=== PATIENT | male | born 1945 | race Caucasian/White ===

== ENCOUNTER → 2018-07-04 13:50 | Outpatient (CLI) | payer MEDICARE, SELFPAY ==
[2017-04-16 10:15] VITALS: BMI 30.9
--- NOTE | 2018-07-04 13:55 | RAD_ITS ---
STUDY: X-RAY - RIGHT SHOULDER REASON FOR EXAM: Male, 72 years old. Pain TECHNIQUE: 4 view(s) of the shoulder. COMPARISON: None. FINDINGS: There is moderate degenerative arthrosis of the glenohumeral articulation. Normal acromioclavicular joint. Normal acromion. Normal humeral head and visualized proximal humerus. The soft tissue structures are unremarkable. Normal visualized pulmonary apex. RAD/Shoulder min 2 Views IMPRESSION: There is moderate degenerative arthrosis of the glenohumeral articulation. There are NO fractures. There is NO dislocation. Electronically Signed: Klaus Boo MD at 7:34 EDT , Service support ,
== END ==
PROVIDERS: Family Provider Family Medicine; PCP Family Medicine; Referring Provider Family Medicine; Visit Provider Family Medicine
DX: M75.00 Adhesive capsulitis of unspecified shoulder (principal)
CPT/HCPCS: 73030

== ENCOUNTER → 2019-03-02 08:35 | Outpatient (CLI) | payer MEDICARE, SELFPAY ==
[2017-04-16 10:15] VITALS: BMI 30.9
[2019-03-02 08:37] LABS: Bacteria 0 SEEN /hpf (None Seen); Mucous, Urine 0 SEEN /hpf (<or=2+); Red Blood Cells-Urine 0 SEEN /hpf (0-5); Squamous Epithelial Cells - UA 0 SEEN /hpf (0-5); White Blood Cells 0 SEEN /hpf (0-5)
[2019-03-02 10:01] LABS: Absolute Lymphocyte Count 2.26 X10^3/uL (0.83-4.51); Basophil# 0.05 X10^3/uL; Basophil% 0.8 % (0-1); Eosinophil# 0.32 X10^3/uL; Eosinophils% 5.2 % (0-5); Hemoglobin 16.1 g/dL (13.0-16.5); Lymphocyte # 2.26 X10^3/ul (4.0); Mean Corpuscular Hgb 31.9 pg (27.0-32.0); Mean Corpuscular Volume 91.1 fL (80-94); Mean Platelet Vol. 11.2 fl (6.2-12.0); Monocyte# 0.44 X10^3/uL; Monocyte% 7.2 % (0-10); NRBC Flagged by Analyzer 0 % (0-5); Neutrophil # 3.03 X10^3/uL (2.7-7.7); Neutrophil % 49.6 % (47-70); Platelet Count 175 K/mm3 (150-450); RBC Distribution Width CV 12.7 % (11.6-14.6); RBC Distribution Width SD 42.2 fl (35.1-43.9); Red Blood Count 5.05 M/mm3 (4.6-6.2); White Blood Count 6.1 K/mm3 (4.4-11.0)
[2019-03-02 10:14] LABS: Color, Urine Yellow (Yellow); Glucose, Dipstick Normal (Normal); Ketone-Dipstick 5 mg/dl (Negative); Leukocyte Esterase-Dipstick 25 /ul (Negative); Nitrite-Dipstick Negative (Negative); Occult Blood-Urine Negative /ul (Negative); Protein-Dipstick 30 mg/dl (Negative); Urine Clarity Clear (Clear); Urine Urobilinogen 1 mg/dl (Normal)
[2019-03-02 10:17] LABS: Urine Bilirubin Dipstick 1 mg/dL (Negative)
[2019-03-02 10:20] LABS: ALB/GLOB Ratio 1.2 RATIO (0.9-2.4); AST(SGOT) 21 U/L (15-37); Alanine Aminotransfer ALT/SGPT 29 U/L (16-61); Alkaline Phosphatase 78 U/L (45-117); Anion Gap 4 (5-15); BUN 20 mg/dL (7-18); Calcium,Total 9.1 mg/dL (8.5-10.1); Chloride 103 mmol/L (98-107); Cholesterol 159 mg/dL (200); Creatinine, Serum 1.11 mg/dL (0.70-1.30); EST Glomerular Filtration Rate 69 mL/min (>60); Est Glom Filt Rate - Afr Amer 84 mL/min (>60); Globulin 3.2 g/dL (2.2-4.2); Glucose 110 mg/dL (74-106); High Density Lipoprotein 32 mg/dL; Potassium 4.2 mmol/L (3.5-5.1); Protein, Total 7.2 g/dL (6.4-8.2); Sodium Level 139 mmol/L (136-145); Thyroid Stim Hormone (TSH) 2.34 uIU/mL (0.358-3.74); Triglycerides 213 mg/dL; Very Low Density Lipoprotein 43 mg/dL (5-40)
[2019-03-05 16:43] LABS: Hemoglobin A1c 5.2 % (4.2-6.3)
== END ==
PROVIDERS: Family Provider Family Medicine; PCP Family Medicine; Referring Provider Family Medicine; Visit Provider Family Medicine
DX: Z00.00 Encounter for general adult medical examination without abnormal findings (principal); R73.09 Other abnormal glucose
CPT/HCPCS: 36415; 80053; 80061; 81001; 83036; 84443; 85025

== ENCOUNTER → 2019-10-09 13:46 | Outpatient (CLI) | payer MEDICARE, SELFPAY ==
--- NOTE | 2019-10-09 13:49 | CT_ITS ---
STUDY: CT ABDOMEN AND PELVIS WITH CONTRAST REASON FOR EXAM: Male, 73 years old. LEFT SIDE ABD PAIN X 2 YEARS RADIATION DOSAGE (If Supplied By Facility): CTDIvol = ( 25.93 ) mGy, DLP = ( 975.97 ) mGycm TECHNIQUE: Transaxial images were obtained from the dome of the diaphragm to the symphysis pubis with oral contrast. Oral and amp; IV Readi-CAT and amp; 100mL Isovue-300 was administered. Sagittal and coronal images were reconstructed. Individualized dose optimization techniques were used for this CT. COMPARISON: None. FINDINGS: Minimal degree of bibasilar atelectasis. Coronary artery calcification. Normal liver. Normal gallbladder and extrahepatic biliary system. Normal spleen. Normal pancreas. Normal bilateral adrenal glands. Normal right kidney. There is a 2.8 cm x 2.7 cm cyst in the mid lateral portion of the left kidney. The stomach is not well distended although there is suggestion of diffuse gastric wall thickening. Correlation with upper GI series is recommended. Normal small intestine. Diffuse haustral thickening of the colon more prominent in the transverse colon as well as the left hemicolon and rectosigmoid colon. Findings are in keeping with a pancolitis. The appendix is visualized and appears normal. There is diffuse atherosclerotic calcification of the abdominal aorta, without a demonstrated aneurysm. Normal inferior vena cava. Normal retroperitoneum. Diffuse bladder wall thickening. There is enlargement of the prostate gland. It measures 3.8 cm x 4 cm. Central calcifications are seen. Normal abdominal wall. Normal osseous structures. CT/Abdomen/Pelvis WITH Contrast IMPRESSION: Saul colitis. Diffuse gastric wall thickening. Correlation with upper GI series is recommended or endoscopy. Mild prostatic enlargement with indentation at the bladder base. Diffuse bladder wall thickening. Electronically Signed: Ashish Thacker, at 15:02 EDT , Service support ,
[2019-10-09 14:11] LABS: CREATININE FINGERSTICK 0.8 mg/dL (0.70-1.30); EGFR FINGERSTICK > 60.0000 mL/min (>60)
== END ==
PROVIDERS: PCP Family Medicine; Referring Provider Family Medicine; Visit Provider Family Medicine
DX: R10.9 Unspecified abdominal pain (principal)
CPT/HCPCS: 74177; Q9967

== ENCOUNTER → 2019-12-17 12:59 | Outpatient (CLI) | payer MEDICARE, SELFPAY ==
[2019-12-15 11:34] VITALS: BMI 30.9
--- NOTE | 2019-12-17 13:01 | RAD_ITS ---
STUDY: X-RAY CHEST REASON FOR EXAM: Male, 74 years old. SOB, WHEEZING AND COUGHING WITH LOTS OF PHLEGM PER PATIENT FOR 2 WEEKS NOW. TECHNIQUE: PA and lateral views of the chest. COMPARISON: Comparison is made with prior study dated 04/16/2017. FINDINGS: Hyperinflation. Scattered calcified granulomas. There is no demonstrated pleural abnormality. Normal size heart. Normal mediastinum and joaquín. Normal visualized pulmonary arteries. There is atherosclerotic calcification of the aortic arch with tortuosity. There are diffuse degenerative changes of the visualized thoracic spine. Normal visualized ribs, clavicles, and shoulders. There is no demonstrated abnormality of the visualized soft tissue structures of the upper abdomen. RAD/Chest PA and Lateral IMPRESSION: No acute abnormality is seen. Electronically Signed: Ashish Thacker, at 15:55 EDT , Service support ,
== END ==
PROVIDERS: PCP Family Medicine; Referring Provider Physician Assistant; Visit Provider Physician Assistant
DX: J06.9 Acute upper respiratory infection, unspecified (principal)
CPT/HCPCS: 71046

== ENCOUNTER → 2019-12-24 17:43 | Outpatient (CLI) | payer MEDICARE, SELFPAY ==
[2019-12-22 12:50] VITALS: BMI 30.9
== END ==
PROVIDERS: Physician Assistant Surgical; PCP Family Medicine; Referring Provider Internal Medicine Gastroenterology; Visit Provider Internal Medicine Gastroenterology
DX: Z11.59 Encounter for screening for other viral diseases (principal)
CPT/HCPCS: 87635; C9803; U0003

== ENCOUNTER → 2020-01-16 09:05 | Outpatient (CLI) | payer MEDICARE, SELFPAY ==
[2019-12-26 10:10] VITALS: BMI 30.9
[2020-01-16 10:03] LABS: Absolute Neutrophil Count 2.2 X10^3/uL (2.0-7.7); Basophil# 0.04 X10^3/uL; Basophil% 0.9 % (0-1); Eosinophils% 8.6 % (0-5); Hematocrit 46.8 % (40-54); Hemoglobin 15.8 g/dL (13.0-16.5); Lymphocyte % 34.5 % (19-41); Mean Corp Hgb Conc 33.8 g/dL (32-36); Mean Corpuscular Hgb 32.2 pg (27.0-32.0); Mean Corpuscular Volume 95.3 fL (80-94); Mean Platelet Vol. 10.8 fl (6.2-12.0); Monocyte# 0.39 X10^3/uL; Monocyte% 8.4 % (0-10); NRBC Flagged by Analyzer 0 % (0-5); Neutrophil % 47.4 % (47-70); Platelet Count 130 K/mm3 (150-450); RBC Distribution Width CV 13.1 % (11.6-14.6); RBC Distribution Width SD 45.6 fl (35.1-43.9); Red Blood Count 4.91 M/mm3 (4.6-6.2); White Blood Count 4.6 K/mm3 (4.4-11.0)
[2020-01-16 10:35] LABS: ALB/GLOB Ratio 1.2 RATIO (0.9-2.4); AST(SGOT) 20 U/L (15-37); Alanine Aminotransfer ALT/SGPT 25 U/L (16-61); Albumin, Serum 3.6 g/dL (3.2-5.0); Alkaline Phosphatase 65 U/L (45-117); Anion Gap 4 (5-15); BUN 17 mg/dL (7-18); BUN/Creat Ratio 15.7 RATIO (10-20); Calcium,Total 9.3 mg/dL (8.5-10.1); Chloride 106 mmol/L (98-107); Cholesterol 185 mg/dL (200); Creatinine, Serum 1.08 mg/dL (0.70-1.30); EST Glomerular Filtration Rate 71 mL/min (>60); Est Glom Filt Rate - Afr Amer 86 mL/min (>60); Glucose 123 mg/dL (74-106); High Density Lipoprotein 53 mg/dL; Potassium 4.8 mmol/L (3.5-5.1); Protein, Total 6.6 g/dL (6.4-8.2); Sodium Level 141 mmol/L (136-145); Triglycerides 170 mg/dL; Very Low Density Lipoprotein 34 mg/dL (5-40)
== END ==
PROVIDERS: PCP Family Medicine; Referring Provider Family Medicine; Visit Provider Family Medicine
DX: E78.5 Hyperlipidemia, unspecified (principal); I10 Essential (primary) hypertension
CPT/HCPCS: 36415; 80053; 80061; 85025

== ENCOUNTER → 2020-03-11 15:56 | Outpatient (CLI) | payer MEDICARE, SELFPAY ==
[2019-12-26 10:10] VITALS: BMI 30.9
[2020-03-11 18:21] LABS: PSA,Total- Diagnostic 2.02 ng/mL (0.0-4.0)
== END ==
PROVIDERS: PCP Family Medicine; Referring Provider Family Medicine; Visit Provider Nurse Practitioner Adult Health
DX: N40.2 Nodular prostate without lower urinary tract symptoms (principal)
CPT/HCPCS: 36415; 84153

== ENCOUNTER → 2020-05-06 06:52 | Outpatient (CLI) | payer MEDICARE, SELFPAY ==
[2019-12-26 10:10] VITALS: BMI 30.9
--- NOTE | 2020-05-06 12:44 | PFT ---
INTRODUCTION: The patient is a 74-year-old male that presents for pulmonary function studies secondary to a diagnosis of shortness of breath. Respiratory therapy reports good patient effort. Bronchodilators were used during testing. INTERPRETATION: Forced expiration spirometry demonstrates the presence of a mild large airways obstructive ventilatory defect. There was a significant response to aerosolized bronchodilators noted. Spirograms are of good quality and plateau gradually indicating slow emptying of the lungs. Body plethysmography was performed and revealed an elevated TLC and RV, indicative of underlying hyperinflation and air trapping. Diffusing capacity by single breath CO was within normal limits. IMPRESSION: Partially reversible mild large airways obstructive ventilatory defect with associated hyperinflation and air trapping. Diffusing capacity is preserved.
== END ==
PROVIDERS: PCP Family Medicine; Referring Provider Family Medicine; Visit Provider Family Medicine
DX: R06.02 Shortness of breath (principal)
CPT/HCPCS: 94060; 94726; 94729

== ENCOUNTER 2020-05-07 20:29 | Emergency (ER) | payer OTHER, MEDICARE, SELFPAY ==
[2019-12-26 10:10] VITALS: BMI 30.9
[2020-05-07 20:29] VITALS: BP 148/105; PULSE 85; RESP 20; TEMP 36.5; O2SAT 96; BMI 29.0
--- NOTE | 2020-05-07 20:43 | EKG12_ITS ---
Test Reason : DYSRHYTHMIA Blood Pressure : / mmHG Vent. Rate : 072 BPM Atrial Rate : 072 BPM P-R Int : 136 ms QRS Dur : 082 ms QT Int : 390 ms P-R-T Axes : 060 055 045 degrees QTc Int : 427 ms Normal sinus rhythm Normal ECG Confirmed by DIPESH MAIER, TATYANA ([id number]), legal editor JESSICA SIMMONS ([id number]) on 05/09/2020 8:37:42 AM Referred By: ARSALAN Confirmed By:OLLIE LANDON MD
--- NOTE | 2020-05-07 20:45 | ED.VIS.GEN ---
History of Present Illness Chief Complaint: Shortness of Breath Narrative: Patient presents with shortness of breath, he was recently diagnosed with asthma, had a nebulizer yesterday and significantly improved but today he started wheezing again. No fever or chills, he has a cough that is mildly productive with clear sputum. He has no chest pain or back pain no pleuritic component. He has no lower extremity edema or calf pain he has no DVT or PE risk factors. Past medical history: Pretension, asthma Medications: Reviewed Social history: Does not smoke, no alcohol Review of systems: All systems negative except as indicated General: Denies: Fever Eyes: Denies: Visual changes - bilaterally ENT: Denies: Rhinorrhea, Sore throat Cardiovascular: Denies: Chest pain Respiratory: Shortness of breath with cough as in HPI Gastrointestinal: Denies: Abdominal pain, Nausea, Vomiting Genitourinary: Denies: Dysuria Musculoskeletal: Denies: Myalgias Skin: Denies: Rash Neurological: Denies: Headache, no focal weakness Psych: Reports: negative Hematologic: Denies: Easy bruising, Easy bleeding Physical exam General: Well nourished, Well developed, he ambulated to the room he appears in mild distress Head: Normocephalic, Atraumatic Eyes: Conjunctiva not pale ENT: Moist mucous membranes Neck: Supple, Nontender, No lymphadenopathy Cardiovascular: Regular rate, Regular rhythm Respiratory: Bilateral wheezing, he is not tachypneic. No stridor. He is speaking in full sentences Abdomen: Soft, Nontender, Nondistended Back: Nontender, Normal Inspection. Negative for: CVA tenderness Extremities: Nontender, No edema Skin: Normal color, No rash Neurological: Alert, Normal Strength, Normal Sensation Psychological: Normal affect Past Medical History - Allergies and Home Meds Allergies/Adverse Reactions: Allergies No Known Allergies Allergy (Verified 05/07/20 20:34) Primary Care Physician: Juarez Silveira MD [Primary Care Provider] - Smoking Status: Former smoker - Family History Paternal Family History: Family History (Last Reviewed 12/26/19 @ 10:10 by Isabella Tapia) Father Myocardial infarction Family History: Reports: Heart Disease Physical Exam Vital Signs/Narrative: Vital Signs Temp Pulse Resp BP Pulse Ox 05/07/20 20:29 97.7 F L 85 20 H 148/105 H 96 Diagnostic/Tx/Re-eval Chest X-Ray - ED: 1 View, Read by ED Physician, Read by Radiologist, Normal, Heart, Lungs, Mediastinum - Rhythm Strip Rhythm Strip: Sinus Rhythm Rate: 72 Ectopy: None - EKG Initial EKG Interpretation: - - Normal sinus rhythm with a rate of 72. Normal MO and QTc intervals. No ischemic changes. - Medical Decision Making Patient was given nebulizers he significantly improved. He appears well he wants to be discharged. I will give him steroids in the emergency department and he has an appointment with his PCP in the morning. ED Disposition - Plan for ED Patient: Disposition: Home or Assisted Living Diagnosis: Asthma exacerbation Instructions: ED Asthma, Acute (Adult) Prescriptions: Prednisone 60 mg PO DAILY #12 tab Transmission Status: Pending to [id number] Referrals: Juarez Silveira MD [Primary Care Provider] -
[2020-05-07 21:04] VITALS: O2SAT 94
[2020-05-07 21:15] VITALS: PULSE 70; RESP 18
[2020-05-07] MEDS: Ipratropium/Albuterol Sulfate 3 ML AMPUL.NEB INHALATION (21:15)
[2020-05-07] MEDS: MethylPREDNISolone 125 MG/2 ML Vial IV (21:16)
--- NOTE | 2020-05-07 21:19 | RAD_ITS ---
STUDY: X-RAY CHEST REASON FOR EXAM: Male, 74 years old. Asthma. Shortness of breath. TECHNIQUE: Frontal view of the chest COMPARISON: 12/17/19 FINDINGS: The lungs are clear. There are no pleural effusions. There is no pneumothorax. The heart is normal in size. The visualized osseous structures are within normal limits. RAD/Chest 1 View (Portable) IMPRESSION: No acute thoracic pathology. Electronically Signed: Tomas Carreno MD at 21:32 EST Tel , Service support ,
[2020-05-07 21:21] LABS: Absolute Lymphocyte Count 2.44 X10^3/uL (0.83-4.51); Absolute Neutrophil Count 2.8 X10^3/uL (2.0-7.7); Basophil# 0.11 X10^3/uL; Basophil% 1.6 % (0-1); Eosinophil# 0.95 X10^3/uL; Hematocrit 45.1 % (40-54); Hemoglobin 16.5 g/dL (13.0-16.5); Lymphocyte # 2.44 X10^3/ul (4.0); Mean Corp Hgb Conc 36.6 g/dL (32-36); Mean Corpuscular Hgb 32.5 pg (27.0-32.0); Monocyte% 7.4 % (0-10); NRBC Flagged by Analyzer 0 % (0-5); Neutrophil # 2.75 X10^3/uL (2.7-7.7); Neutrophil % 40.7 % (47-70); Platelet Count 157 K/mm3 (150-450); RBC Distribution Width CV 12.4 % (11.6-14.6); RBC Distribution Width SD 40.4 fl (35.1-43.9); Red Blood Count 5.07 M/mm3 (4.6-6.2); White Blood Count 6.8 K/mm3 (4.4-11.0)
[2020-05-07 21:40] LABS: Anion Gap 6 (5-15); BUN 18 mg/dL (7-18); Calcium,Total 9.1 mg/dL (8.5-10.1); Chloride 106 mmol/L (98-107); Creatinine, Serum 1.06 mg/dL (0.70-1.30); EST Glomerular Filtration Rate 73 mL/min (>60); Est Glom Filt Rate - Afr Amer 88 mL/min (>60); Estimated Creatinine Clearance 58.89 ml/min; Glucose 132 mg/dL (74-106); Potassium 3.3 mmol/L (3.5-5.1); Sodium Level 139 mmol/L (136-145)
[2020-05-07] MEDS: predniSONE 20 MG Tablet 60 MG PO (22:29)
[2020-05-07 22:33] VITALS: BP 147/97; PULSE 73; RESP 19; O2SAT 95
== END 2020-05-07 22:36 | disposition home or self-care (01) ==
PROVIDERS: Emergency Provider Emergency Medicine; PCP Family Medicine
DX: J45.901 Unspecified asthma with (acute) exacerbation (principal); Z82.49 Family history of ischemic heart disease and other diseases of the circulatory system; Z87.891 Personal history of nicotine dependence
CPT/HCPCS: 71045; 80048; 84484; 85025; 87426; 93005; 94640; 99284

== ENCOUNTER → 2020-12-17 08:07 | Outpatient (CLI) | payer MEDICARE, SELFPAY ==
[2020-12-17 10:11] LABS: Absolute Lymphocyte Count 1.82 X10^3/uL (0.83-4.51); Absolute Neutrophil Count 3.3 X10^3/uL (2.0-7.7); Basophil# 0.06 X10^3/uL; Eosinophil# 0.28 X10^3/uL; Eosinophils% 4.8 % (0-5); Hematocrit 44.2 % (40-54); Hemoglobin 15.7 g/dL (13.0-16.5); Lymphocyte # 1.82 X10^3/ul (0.83-4.51); Lymphocyte % 31.1 % (19-41); Mean Corp Hgb Conc 35.5 g/dL (32-36); Mean Corpuscular Hgb 32.6 pg (27.0-32.0); Mean Corpuscular Volume 91.9 fL (80-94); Monocyte# 0.42 X10^3/uL; Monocyte% 7.2 % (0-10); NRBC Flagged by Analyzer 0 % (0-5); Neutrophil # 3.25 X10^3/uL (2.7-7.7); Neutrophil % 55.6 % (47-70); Platelet Count 144 K/mm3 (150-450); RBC Distribution Width CV 12.8 % (11.6-14.6); RBC Distribution Width SD 43.3 fl (35.1-43.9); Red Blood Count 4.81 M/mm3 (4.6-6.2); White Blood Count 5.9 K/mm3 (4.4-11.0)
[2020-12-17 10:45] LABS: ALB/GLOB Ratio 1.2 RATIO (0.9-2.4); AST(SGOT) 25 U/L (15-37); Alanine Aminotransfer ALT/SGPT 27 U/L (16-61); Albumin, Serum 3.6 g/dL (3.2-5.0); Alkaline Phosphatase 59 U/L (45-117); Anion Gap 8 (5-15); BUN 14 mg/dL (7-18); BUN/Creat Ratio 13.6 RATIO (10-20); Calcium,Total 8.1 mg/dL (8.5-10.1); Chloride 105 mmol/L (98-107); Cholesterol 160 mg/dL (200); Creatinine, Serum 1.03 mg/dL (0.70-1.30); EST Glomerular Filtration Rate 75 mL/min (>60); Est Glom Filt Rate - Afr Amer 91 mL/min (>60); Globulin 2.9 g/dL (2.2-4.2); Glucose 125 mg/dL (74-106); High Density Lipoprotein 46 mg/dL; PSA,Total- Diagnostic 2.29 ng/mL (0.0-4.0); Potassium 3.1 mmol/L (3.5-5.1); Protein, Total 6.5 g/dL (6.4-8.2); Sodium Level 138 mmol/L (136-145); Triglycerides 159 mg/dL; Very Low Density Lipoprotein 32 mg/dL (5-40)
== END ==
PROVIDERS: PCP Family Medicine; Referring Provider Family Medicine; Visit Provider Family Medicine
DX: E78.5 Hyperlipidemia, unspecified (principal); I10 Essential (primary) hypertension; N40.0 Benign prostatic hyperplasia without lower urinary tract symptoms
CPT/HCPCS: 36415; 80053; 80061; 84153; 85025

== ENCOUNTER 2021-04-23 09:05 | Outpatient (CLI) | payer MEDICARE, SELFPAY ==
[2021-04-23 09:29] LABS: Absolute Lymphocyte Count 1.94 X10^3/uL (0.83-4.51); Absolute Neutrophil Count 3.9 X10^3/uL (2.0-7.7); Basophil# 0.08 X10^3/uL; Basophil% 1.1 % (0-1); Eosinophil# 0.74 X10^3/uL; Eosinophils% 10.4 % (0-5); Hematocrit 46.2 % (40-54); Hemoglobin 16.8 g/dL (13.0-16.5); Lymphocyte # 1.94 X10^3/ul (0.83-4.51); Lymphocyte % 27.2 % (19-41); Mean Corp Hgb Conc 36.4 g/dL (32-36); Mean Corpuscular Hgb 33.1 pg (27.0-32.0); Mean Corpuscular Volume 91.1 fL (80-94); Mean Platelet Vol. 10.2 fl (6.2-12.0); Monocyte# 0.47 X10^3/uL; Monocyte% 6.6 % (0-10); NRBC Flagged by Analyzer 0 % (0-5); Neutrophil # 3.88 X10^3/uL (2.7-7.7); Neutrophil % 54.4 % (47-70); Platelet Count 160 K/mm3 (150-450); RBC Distribution Width CV 12.6 % (11.6-14.6); Red Blood Count 5.07 M/mm3 (4.6-6.2); White Blood Count 7.1 K/mm3 (4.4-11.0)
[2021-04-29 02:07] LABS: Aspirgillus flavus Negative (Neg:<1:1); Aspirgillus fumigatus Negative (Neg:<1:1); Aspirgillus niger Negative (Neg:<1:1)
[2021-04-29 04:07] LABS: Alternaria alternata <0.10 kU/L (Class 0); Aspergillus fumigatus <0.10 kU/L (Class 0); Bahia Grass <0.10 kU/L (Class 0); Bermuda Grass <0.10 kU/L (Class 0); Bluegrass, Kentucky <0.10 kU/L (Class 0); Cat Hair/Dander, Standard <0.10 kU/L (Class 0); Cedar, Mountain <0.10 kU/L (Class 0); Cladosporium herbarum <0.10 kU/L (Class 0); Cockroach, American <0.10 kU/L (Class 0); D farinae Mite <0.10 kU/L (Class 0); D pteronyssinus 0.13 kU/L (Class 0/I); Dog Epithelia <0.10 kU/L (Class 0); Elm, American White <0.10 kU/L (Class 0); Hazelnut Tree <0.10 kU/L (Class 0); Hickory, White <0.10 kU/L (Class 0); Johnson Grass <0.10 kU/L (Class 0); Maple/Box Elder <0.10 kU/L (Class 0); Mucor racemosus <0.10 kU/L (Class 0); Mugwort <0.10 kU/L (Class 0); Mulberry, White <0.10 kU/L (Class 0); Oak, White <0.10 kU/L (Class 0); Penicillium chrysogen <0.10 kU/L (Class 0); Pigweed, Rough <0.10 kU/L (Class 0); Plantain, English <0.10 kU/L (Class 0); Ragweed, Short/Common <0.10 kU/L (Class 0); Sheep Sorrel(Dock) <0.10 kU/L (Class 0); Stemphylium herbarum <0.10 kU/L (Class 0); Sweet Gum <0.10 kU/L (Class 0); Sycamore, American <0.10 kU/L (Class 0)
[2021-04-29 13:32] LABS: Immunoglobulin E 396 IU/mL (6-495); Nettle <0.10 kU/L (Class 0)
== END 2021-04-23 23:59 | disposition short-term general hospital (02) ==
LOC: PAVLAB 09:06
PROVIDERS: PCP Family Medicine; Referring Provider Internal Medicine Critical Care Medicine; Visit Provider Internal Medicine Critical Care Medicine
DX: J45.51 Severe persistent asthma with (acute) exacerbation (principal)
CPT/HCPCS: 36415; 82785; 85025; 86003; 86606

== ENCOUNTER 2021-05-14 07:57 | Outpatient (CLI) | payer MEDICARE, SELFPAY ==
[2021-05-14 08:37] VITALS: PULSE 74; PULSE 76; PULSE 86; PULSE 88; PULSE 89; PULSE 90; O2SAT 93; O2SAT 94; O2SAT 95; O2SAT 96; O2SAT 97
--- NOTE | 2021-05-14 12:20 | PCM.PSN.6M ---
PSN 6 Minute Walk Test 6 Minute Walk Test 6 Minute Walk Test: 6 Minute Walk Test PSN:6-Minute Walk Test Start: 05/14/21 08:35 Freq: Status: Active Protocol: RESP.6MINW Document 05/14/21 08:37 ANGELINA (Rec: 05/14/21 08:39 ANGELINA [id number]) 6 Minute Walk Test Date Performed 05/14/21 Time Performed 08:15 Height 5 ft 7 in Weight: 83.915 kg Weight in Pounds [address]: Chris Floyd Assistive device used: None Pre-test Oxygen Delivery Method Room Air Pulse Ox (%) 96 Pulse Rate (60-100 beats/min) 74 Dyspnea Robert Scale (0-10) 0 Exertion Robert Scale (6-20) 6 1st minute Oxygen Delivery Method Room Air Pulse Ox (%) 93 Pulse Rate (60-100 beats/min) 88 2nd minute Oxygen Delivery Method Room Air Pulse Ox (%) 94 Pulse Rate (60-100 beats/min) 89 3rd minute Oxygen Delivery Method Room Air Pulse Ox (%) 96 Pulse Rate (60-100 beats/min) 89 4th minute Oxygen Delivery Method Room Air Pulse Ox (%) 95 Pulse Rate (60-100 beats/min) 86 5th minute Oxygen Delivery Method Room Air Pulse Ox (%) 96 Pulse Rate (60-100 beats/min) 90 6th minute Oxygen Delivery Method Room Air Pulse Ox (%) 95 Pulse Rate (60-100 beats/min) 90 Dyspnea Robert Scale (0-10) 0 Exertion Robert Scale (6-20) 11 Post-test Oxygen Delivery Method Room Air Pulse Ox (%) 97 Pulse Rate (60-100 beats/min) 76 Full Laps Walked 22 Partial Lap, Number of Tiles Walked 25 Total Distance Walked (ft) 1323 Interpretation Interpretation: The patient was able to ambulate 1323 feet over the course of 6 minutes on room air with no assistive devices or breaks. There was no significant desaturation or tachycardia noted. These findings are consistent with a normal exercise oximetry. Recommendations Recommendations: No supplemental oxygen is indicated at this time.
== END 2021-05-14 23:59 | disposition home or self-care (01) ==
LOC: PSN 07:59
PROVIDERS: PCP Family Medicine; Referring Provider Internal Medicine Critical Care Medicine; Visit Provider Internal Medicine Critical Care Medicine
DX: J45.51 Severe persistent asthma with (acute) exacerbation (principal)
CPT/HCPCS: 94618

== ENCOUNTER 2021-05-25 10:33 | Outpatient (CLI) | payer MEDICARE, SELFPAY ==
--- NOTE | 2021-05-25 13:00 | PFTCOMP_ITS ---
COMPLETE PULMONARY FUNCTION TEST INTERPRETATION Brief HPI: Patient is a 75 year old male, currently under the care of myself, who presents to [facility] for complete pulmonary function tests secondary to diagnosis of Asthma. Respiratory therapist reports good effort and reproducible results. Interpretation: Forced expiration spirometry shows no large airways obstructive ventilatory defect with an FEV1 of 124% predicted. There is no significant bronchodilator response by strict ATS criteria. Spirograms are of good quality and plateau normally. The respiratory flow volume loop shows a normal pattern. Lung volumes by body plethysmography show a normal total lung capacity at 6.4 L, 111% predicted. All other lung volumes are within normal limits. Diffusion capacity by carbon monoxide is normal at 117% predicted. The airway resistance is normal. Compared to previous pulmonary function tests from 05/06/20, there is been a significant improvement in FEV1 by 52% with corresponding resolution of air trapping with hyperinflation. Impression: These pulmonary function tests are within normal limits.
== END 2021-05-25 23:59 | disposition home or self-care (01) ==
LOC: PSN 10:35
PROVIDERS: PCP Family Medicine; Referring Provider Internal Medicine Critical Care Medicine; Visit Provider Internal Medicine Critical Care Medicine
DX: J45.51 Severe persistent asthma with (acute) exacerbation (principal)
CPT/HCPCS: 94060; 94726; 94729

== ENCOUNTER 2021-06-02 07:59 | Outpatient (CLI) | payer MEDICARE, SELFPAY ==
[2021-06-02 10:43] LABS: Microalbumin,Random Urine 53.7 mg/L (NO RANGE EST.); Microalbumin:Creatinine Ratio 13.8 mg/g CRE (<30 mg/g CRE)
[2021-06-02 11:13] LABS: ALB/GLOB Ratio 1.4 RATIO (0.9-2.4); AST(SGOT) 21 U/L (15-37); Alanine Aminotransfer ALT/SGPT 23 U/L (16-61); Albumin, Serum 3.8 g/dL (3.2-5.0); Alkaline Phosphatase 56 U/L (45-117); Anion Gap 11 (5-15); BUN 19 mg/dL (7-18); BUN/Creat Ratio 18.8 RATIO (10-20); Calcium,Total 8.7 mg/dL (8.5-10.1); Chloride 105 mmol/L (98-107); Cholesterol 169 mg/dL (200); Creatinine, Serum 1.01 mg/dL (0.70-1.30); EST Glomerular Filtration Rate 77 mL/min (>60); Est Glom Filt Rate - Afr Amer 93 mL/min (>60); Globulin 2.7 g/dL (2.2-4.2); Glucose 117 mg/dL (74-106); High Density Lipoprotein 45 mg/dL; Potassium 3.3 mmol/L (3.5-5.1); Protein, Total 6.5 g/dL (6.4-8.2); Sodium Level 141 mmol/L (136-145); Triglycerides 153 mg/dL; Very Low Density Lipoprotein 31 mg/dL (5-40)
== END 2021-06-02 23:59 | disposition home or self-care (01) ==
LOC: MFPLAB 08:00
PROVIDERS: PCP Family Medicine; Referring Provider Family Medicine; Visit Provider Nurse Practitioner Family
DX: I10 Essential (primary) hypertension (principal); E78.5 Hyperlipidemia, unspecified
CPT/HCPCS: 36415; 80053; 80061; 82043; 82570

== ENCOUNTER 2021-09-27 11:47 | Emergency (ER) | payer MEDICARE, SELFPAY ==
[2021-09-27 11:47] VITALS: BP 157/111; PULSE 63; RESP 14; TEMP 36.8; O2SAT 96; BMI 29.0
--- NOTE | 2021-09-27 11:56 | CT_ITS ---
STUDY: CT ABDOMEN AND PELVIS WITHOUT CONTRAST REASON FOR EXAM: Male, 75 years old. Left low back pain RADIATION DOSAGE (If Supplied By Facility): CTDIvol = ( 12.09 ) mGy, DLP = ( 624.20 ) mGycm TECHNIQUE: Transaxial images were obtained from the dome of the diaphragm to the symphysis pubis without oral contrast, and without intravenous contrast. Sagittal and coronal images were reconstructed. Individualized dose optimization techniques were used for this CT. COMPARISON: 10/09/2019 FINDINGS: There is a 3.9 mm left lower lobe pulmonary nodule. The visualized portions of the heart are within normal limits. The lack of intravenous contrast limits evaluation of solid visceral organs. Normal liver. Normal gallbladder and extrahepatic biliary system. There is splenomegaly. Normal pancreas. Normal bilateral adrenal glands. There are stable bilateral renal cysts. Normal visualized stomach. Normal small intestine. There are multiple colonic diverticula consistent with diverticulosis. There is minimal stranding within the left lower quadrant that is less pronounced than the prior examination. The appendix is visualized and appears normal. There is diffuse atherosclerotic calcification of the abdominal aorta, without a demonstrated aneurysm. Normal inferior vena cava. Normal retroperitoneum. Normal urinary bladder. Normal abdominal wall. There are diffuse degenerative changes of the visualized thoracic and lumbar spine. CT/Abdomen/Pelvis without Cont IMPRESSION: Degenerative changes of the visualized thoracic and lumbar spine. Atherosclerosis. Colonic diverticulosis. Electronically Signed: Reyna Quigley MD at 13:23 EDT ,
--- NOTE | 2021-09-27 11:57 | EDS_ITS ---
HPI History of Present Illness Chief Complaint: Back Informant: patient Onset/Context/Timing Onset: Today Narrative Narrative: Patient present secondary left low back pain that was present when he woke this morning. He states he felt fine when he went to bed last night. No recent injury or change in activity. He took some leftover pain medicine at home this morning but does not know what it was. He denies urinary symptoms. He denies any problems with his back previously. [facility] Medical History Asthma Barretts esophagus BPH (benign prostatic hyperplasia) COPD (chronic obstructive pulmonary disease) Dyslipidemia Hypertension Home Medications albuterol sulfate 90 mcg/actuation breath activated powder inhaler 2 inh inhalation Q6H PRN shortness of breath or wheezing #1 ea 12/26/19 [Rx Last Taken Unknown] amlodipine 5 mg tablet 5 mg PO DAILY 04/22/21 [History Last Taken Unknown] bisoprolol 10 mg-hydrochlorothiazide 6.25 mg tablet 1 tab PO DAILY 04/22/21 [History Last Taken Unknown] lovastatin 20 mg tablet 20 mg PO DAILY 04/22/21 [History Last Taken Unknown] omeprazole 20 mg tablet,delayed release 20 mg PO DAILY 04/22/21 [History Last Taken Unknown] terazosin 2 mg capsule 2 mg PO DAILY 04/22/21 [History Last Taken Unknown] trazodone 50 mg tablet 50 mg PO DAILY 04/22/21 [History Last Taken Unknown] budesonide 160 mcg-glycopyr 9 mcg-formot 4.8 mcg/actuation HFA inhaler (Breztri Aerosphere) 2 inh inhalation BID #10.7 grams 04/23/21 [Rx Last Taken Unknown] cyclobenzaprine 10 mg tablet 10 mg PO BID PRN muscle spasm #10 tabs 09/27/21 [Rx Last Taken Unknown] hydrocodone-acetaminophen 5-325mg 5mg-325mg 1 tab PO Q6H PRN pain 3 days #10 tabs 09/27/21 [Rx Last Taken Unknown] prednisone 20 mg tablet 40 mg PO DAILY #10 tabs 09/27/21 [Rx Last Taken Unknown] Allergy/AdvReac Type Severity Reaction Status Date / Time sulfamethoxazole AdvReac RASH Verified 09/27/21 11:49 [From Sulfamethoxazole-Trimethoprim] trimethoprim AdvReac RASH Verified 09/27/21 11:49 [From Sulfamethoxazole-Trimethoprim] Family History Father Myocardial infarction Social History Smoking Status: Former smoker quit date: 03/28/01 pack-years: 30 ROS ROS ED Constitutional Constitutional ED: Denies chills or fever(s) Eyes Eyes: Denies change in vision or discharge from eye(s) ENT ENT ED: Denies discharge from eye(s), rhinorrhea or sore throat Cardiovascular Cardiovascular: Denies chest pain or palpitations Respiratory/Chest Respiratory/Chest: Denies cough or dyspnea Gastrointestinal Gastrointestinal: Denies abdominal pain, diarrhea, nausea or vomiting Genitourinary Genitourinary ED: Denies difficulty urinating or dysuria Musculoskeletal Musculoskeletal: Reports back pain; Denies extremity pain Integumentary Denies Abrasions or rash Neurologic Neurologic: Denies headache(s) or weakness Allergic/Immunologic Allergic/Immunologic ED: Denies lip swelling or urticaria EXAM Physical Exam Const Vital Signs: 09/27/21 11:47 Temperature 98.3 F Temperature Source Temporal Pulse Rate 63 Respiratory Rate 14 Blood Pressure 157/111 H Blood Pressure Mean 126 Pulse Ox 96 Oxygen Delivery Method Room Air Positive well nourished and well developed General Appearance ED: well developed HEENT Reports normocephalic and head/scalp atraumatic Eyes PERRL and EOMs intact bilaterally Neck supple Chest Wall inspection of chest normal and palpation of chest normal Resp normal respiratory effort and clear to auscultation bilaterally Cardio regular rate and regular rhythm GI normal to inspection, nondistended, normoactive bowel sounds Palpation: soft Back/Spine no CVA tenderness Back/Spine Narrative: Patient has no reproducible tenderness over the thoracic or lumbar spine. No reproducible tenderness in the left sciatic notch where he points to the area of pain. No erythema or ecchymosis. Extremity normal to inspection Neuro oriented x3 and no sensory deficits noted Sensorium / Orientation: alert Motor Exam: strength 5/5 throughout Psych mental status grossly normal Skin no rashes or lesions noted MDM MDM MDM Narrative Medical decision making narrative: Because the patient does not have history of back pain and I cannot recreate this a CT flank was obtained. Urinalysis was also ordered. Lab Data Attestation: I reviewed the patient's lab results. Labs: Laboratory Results - last 24 hr 09/27/21 12:45 Urine Color Yellow Urine Clarity Clear Urine pH 6.0 Ur Specific [place] 1.010 Urine Protein Negative Urine Glucose (UA) Normal Urine Ketones Negative Urine Occult Blood Negative Urine Nitrite Negative Urine Bilirubin Negative Urine Urobilinogen Normal Ur Leukocyte Esterase Negative Urine RBC 0 SEEN Urine WBC 0 SEEN Ur Squamous Epith Cells 0 SEEN Urine Bacteria 0 SEEN Urine Mucus 0 SEEN Radiography Diagnostic Testing: Clinical Impression(s) from Imaging Studies Abdomen/Pelvis CT 09/27/21 11:56 IMPRESSION: Degenerative changes of the visualized thoracic and lumbar spine. Atherosclerosis. Colonic diverticulosis. Electronically Signed: Reyna Quigley MD at 13:23 EDT , Treatment and Re-Evaluation Narrative: Urinalysis unremarkable. CT scan does show some degenerative changes in the back but no other acute findings. Patient will be treated with [place], prednisone, Flexeril. 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 Discharge Plan Triage Chief Complaint: Back ED Provider: Khadijah Mendoza Dx/Rx/DC Orders Clinical Impression: Musculoskeletal back pain Instructions: ED Back Sprain/Strain Prescriptions: New hydrocodone-acetaminophen 5-325 mg tablet 1 tab PO Q6H PRN (Reason: pain) 3 Days Qty: 10 0RF cyclobenzaprine 10 mg tablet 10 mg PO BID PRN (Reason: muscle spasm) Qty: 10 0RF prednisone 20 mg tablet 40 mg PO DAILY Qty: 10 0RF No Action albuterol sulfate 90 mcg/actuation aerosol powdr breath activated 2 inh INHALATION Q6H PRN (Reason: shortness of breath or wheezing) Qty: 1 0RF terazosin 2 mg capsule 2 mg PO DAILY bisoprolol-hydrochlorothiazide 10-6.25 mg tablet 1 tab PO DAILY lovastatin 20 mg tablet 20 mg PO DAILY amlodipine 5 mg tablet 5 mg PO DAILY omeprazole 20 mg tablet,delayed release (DR/EC) 20 mg PO DAILY trazodone 50 mg tablet 50 mg PO DAILY Breztri Aerosphere 160-9-4.8 mcg/actuation HFA aerosol inhaler 2 inh inhalation BID Qty: 10.7 5RF Primary Care Provider: Juarez Garcia Referrals: Juarez Garcia MD [Primary Care Provider] - 1 Week if not improving Disposition Disposition: Home, Self Care
[2021-09-27] MEDS: Lidocaine 5% Patch 1 PATCH TOPICAL (12:04)
[2021-09-27 12:49] LABS: Bacteria 0 SEEN /hpf (None Seen); Mucous, Urine 0 SEEN /hpf (<or=2+); Red Blood Cells-Urine 0 SEEN /hpf (0-5); Squamous Epithelial Cells - UA 0 SEEN /hpf (0-5); White Blood Cells 0 SEEN /hpf (0-5)
[2021-09-27 12:52] LABS: Color, Urine Yellow (Yellow); Glucose, Dipstick Normal (Normal); Ketone-Dipstick Negative (Negative); Leukocyte Esterase-Dipstick Negative /ul (Negative); Nitrite-Dipstick Negative (Negative); Occult Blood-Urine Negative /ul (Negative); Protein-Dipstick Negative (Negative); Urine Bilirubin Dipstick Negative (Negative); Urine Clarity Clear (Clear); Urine Urobilinogen Normal (Normal)
== END 2021-09-27 14:13 | disposition home or self-care (01) ==
PROVIDERS: Emergency Provider Emergency Medicine; PCP Family Medicine; Visit Provider Emergency Medicine
DX: M54.9 Dorsalgia, unspecified (principal); J44.9 Chronic obstructive pulmonary disease, unspecified; Z87.891 Personal history of nicotine dependence; I10 Essential (primary) hypertension; E78.5 Hyperlipidemia, unspecified
CPT/HCPCS: 74176; 81001; 99282

== ENCOUNTER → 2022-04-06 | Outpatient (CLI) | payer MEDICARE, SELFPAY ==
[2022-04-06 10:19] LABS: Absolute Neutrophil Count 2.8 X10^3/uL (2.0-7.7); Basophil# 0.06 X10^3/uL; Eosinophil# 0.34 X10^3/uL; Eosinophils% 5.7 % (0-5); Hemoglobin 15.7 g/dL (13.0-16.5); Lymphocyte % 38.8 % (19-41); Mean Corp Hgb Conc 35.7 g/dL (32-36); Mean Corpuscular Hgb 32.8 pg (27.0-32.0); Mean Corpuscular Volume 91.9 fL (80-94); Mean Platelet Vol. 11.6 fl (6.2-12.0); Monocyte# 0.45 X10^3/uL; Monocyte% 7.6 % (0-10); NRBC Flagged by Analyzer 0 % (0-5); Neutrophil # 2.76 X10^3/uL (2.7-7.7); Neutrophil % 46.6 % (47-70); Platelet Count 129 K/mm3 (150-450); RBC Distribution Width CV 13.1 % (11.6-14.6); RBC Distribution Width SD 43.6 fl (35.1-43.9); Red Blood Count 4.79 M/mm3 (4.6-6.2); White Blood Count 5.9 K/mm3 (4.4-11.0)
[2022-04-06 10:47] LABS: Vitamin B12 361 pg/mL (211-911)
[2022-04-06 10:53] LABS: ALB/GLOB Ratio 1.5 RATIO (0.9-2.4); AST(SGOT) 18 U/L (15-37); Alanine Aminotransfer ALT/SGPT 25 U/L (16-61); Albumin, Serum 3.8 g/dL (3.2-5.0); Alkaline Phosphatase 64 U/L (45-117); Anion Gap 12 (5-15); BUN 16 mg/dL (7-18); BUN/Creat Ratio 15.5 RATIO (10-20); Calcium,Total 8.8 mg/dL (8.5-10.1); Chloride 104 mmol/L (98-107); Cholesterol 163 mg/dL (200); Creatinine, Serum 1.03 mg/dL (0.70-1.30); EST Glomerular Filtration Rate 75 mL/min (>60); Est Glom Filt Rate - Afr Amer 91 mL/min (>60); Globulin 2.6 g/dL (2.2-4.2); Glucose 105 mg/dL (74-106); High Density Lipoprotein 43 mg/dL; PSA,Total - Annual Screen 2.67 ng/mL (0.00-4.00); Potassium 3.6 mmol/L (3.5-5.1); Protein, Total 6.4 g/dL (6.4-8.2); Sodium Level 143 mmol/L (136-145); Triglycerides 175 mg/dL; Very Low Density Lipoprotein 35 mg/dL (5-40)
[2022-04-06 11:19] LABS: Microalbumin,Random Urine 32.7 mg/L (NO RANGE EST.)
== END | disposition home or self-care (01) ==
LOC: MFPLAB 08:54
PROVIDERS: PCP Family Medicine; Visit Provider Family Medicine
DX: K21.9 Gastro-esophageal reflux disease without esophagitis (principal); N40.0 Benign prostatic hyperplasia without lower urinary tract symptoms; I10 Essential (primary) hypertension; E78.5 Hyperlipidemia, unspecified; Z12.5 Encounter for screening for malignant neoplasm of prostate
CPT/HCPCS: 36415; 80053; 80061; 82043; 82607; 84153; 85025; G0103

== ENCOUNTER → 2022-08-02 | Outpatient (CLI) | payer MEDICARE, SELFPAY ==
--- NOTE | 2022-08-02 07:45 | CT_ITS ---
STUDY: CT MAXILLOFACIAL SINUSES REASON FOR EXAM: Male, 76 years old. SINUSITIS RADIATION DOSAGE (If Supplied By Facility): CTDIvol = ( 33.06 ) mGy, DLP = ( 866.91 ) mGycm TECHNIQUE: The patient was scanned in a multi detector CT scanner. High resolution axial imaging was performed without the administration of intravenous contrast material. Sagittal and coronal images were reconstructed. Individualized dose optimization techniques were used for this CT. COMPARISON: None. FINDINGS: FRONTAL SINUSES: Partial opacification of the frontal sinuses. ETHMOIDAL SINUSES: Mucosal thickening of the ethmoid sinuses bilaterally. MAXILLARY SINUSES: There is opacification of the right maxillary sinus. There has been prior resection of the medial superior wall of the right maxillary sinus. SPHENOIDAL SINUSES: Mild mucosal thickening along the anterior aspect of the left sphenoid sinus. There is patency of the bilateral maxillary infundibuli with normal uncinate processes, ethmoid bullae, and hiatus semilunaris. Normal bilateral middle turbinates. Normal bilateral inferior turbinates. Normal midline nasal septum. There is patency of the bilateral nasal airways. The visualized osseous structures are normal. The visualized bilateral orbital contents are normal. CT/Sinus/Facial Bone IMPRESSION: Opacification of the right maxillary sinus as well as partial opacification of the frontal sinuses. Mucosal thickening of the ethmoid sinuses bilaterally as well as the anterior aspect of the left sphenoid sinus. Electronically Signed: Ashish Thacker MD at 12:21 EDT ,
== END | disposition home or self-care (01) ==
PROVIDERS: PCP Family Medicine; Referring Provider Otolaryngology; Visit Provider Otolaryngology
DX: J32.8 Other chronic sinusitis (principal)
CPT/HCPCS: 70486

== ENCOUNTER → 2023-02-04 | Outpatient (CLI) | payer MEDICARE, SELFPAY ==
[2023-02-04 10:24] LABS: ALB/GLOB Ratio 1.1 RATIO (0.9-2.4); AST(SGOT) 16 U/L (15-37); Alanine Aminotransfer ALT/SGPT 19 U/L (16-61); Albumin, Serum 3.5 g/dL (3.2-5.0); Alkaline Phosphatase 70 U/L (45-117); Anion Gap 11 (5-15); BUN 15 mg/dL (7-18); BUN/Creat Ratio 13.9 RATIO (10-20); Chloride 105 mmol/L (98-107); Cholesterol 148 mg/dL (200); Creatinine, Serum 1.08 mg/dL (0.70-1.30); EST Glomerular Filtration Rate 71 mL/min (>60); Est Glom Filt Rate - Afr Amer 86 mL/min (>60); Globulin 3.1 g/dL (2.2-4.2); Glucose 121 mg/dL (74-106); High Density Lipoprotein 37 mg/dL; Potassium 3.5 mmol/L (3.5-5.1); Protein, Total 6.6 g/dL (6.4-8.2); Sodium Level 143 mmol/L (136-145); Triglycerides 180 mg/dL; Very Low Density Lipoprotein 36 mg/dL (5-40)
[2023-02-04 10:29] LABS: Vitamin B12 755 pg/mL (211-911); Vitamin D,25 Hydroxy 63.6 ng/mL
[2023-02-04 11:37] LABS: Microalbumin,Random Urine 18.3 mg/L (NO RANGE EST.); Microalbumin:Creatinine Ratio 8.1 mg/g CRE (<30 mg/g CRE)
== END | disposition home or self-care (01) ==
LOC: MFPLAB 08:28
PROVIDERS: PCP Family Medicine; Visit Provider Family Medicine
DX: E78.5 Hyperlipidemia, unspecified (principal); K21.9 Gastro-esophageal reflux disease without esophagitis; I10 Essential (primary) hypertension; N40.0 Benign prostatic hyperplasia without lower urinary tract symptoms
CPT/HCPCS: 36415; 80053; 80061; 82043; 82306; 82570; 82607

== ENCOUNTER 2023-11-29 10:40 | Emergency (ER) | payer MEDICARE, SELFPAY ==
[2023-11-29] VITALS (8 sets, daily range): BP systolic 145–185; BP diastolic 44–94; PULSE 54–67; RESP 11–22; TEMP 36.1–36.2; O2SAT 99–100; BMI 24.0
--- NOTE | 2023-11-29 11:12 | RAD_ITS ---
STUDY: X-RAY CHEST REASON FOR EXAM: Male, 78 years old. Chest pain. TECHNIQUE: Single frontal view of the chest. COMPARISON: May 07, 2020 FINDINGS: The lungs are clear and expanded. There is no demonstrated pleural abnormality. Stable borderline cardiomegaly. Normal mediastinum and joaquín. Normal visualized pulmonary arteries. Aortic tortuosity with calcification unchanged. No abnormality of the visualized soft tissue structures of the upper abdomen. RAD/Chest 1 View (Portable) IMPRESSION: Stable chest with no acute or active cardiopulmonary disease. Electronically Signed: Sergio Crow MD at 12:31 EDT ,
--- NOTE | 2023-11-29 11:12 | EKG12_ITS ---
Test Reason : CP Blood Pressure : / mmHG Vent. Rate : 064 BPM Atrial Rate : 064 BPM P-R Int : 142 ms QRS Dur : 078 ms QT Int : 456 ms P-R-T Axes : 026 -05 -17 degrees QTc Int : 470 ms Normal sinus rhythm Minimal voltage criteria for LVH, may be normal variant ( R in aVL ) Borderline ECG Confirmed by JAVIER MAIER, TORI ([id number]), advertising editor JESSICA SIMMONS ([id number]) on 12/01/2023 1:42:36 PM Referred By: Confirmed By:TORI HERRERA MD
[2023-11-29 11:30] LABS: Absolute Lymphocyte Count 1.55 X10^3/uL (0.83-4.51); Absolute Neutrophil Count 2.6 X10^3/uL (2.0-7.7); Basophil# 0.04 X10^3/uL; Basophil% 0.8 % (0-1); Eosinophil# 0.21 X10^3/uL; Eosinophils% 4.4 % (0-5); Hematocrit 41.5 % (40-54); Hemoglobin 15.1 g/dL (13.0-16.5); Lymphocyte # 1.55 X10^3/ul (0.83-4.51); Lymphocyte % 32.6 % (19-41); Mean Corp Hgb Conc 36.4 g/dL (32-36); Mean Corpuscular Hgb 32.5 pg (27.0-32.0); Mean Corpuscular Volume 89.2 fL (80-94); Mean Platelet Vol. 11.6 fl (6.2-12.0); Monocyte# 0.33 X10^3/uL; Monocyte% 6.9 % (0-10); NRBC Flagged by Analyzer 0 % (0-5); Neutrophil # 2.62 X10^3/uL (2.7-7.7); Neutrophil % 55.1 % (47-70); Platelet Count 106 K/mm3 (150-450); RBC Distribution Width CV 12.7 % (11.6-14.6); RBC Distribution Width SD 41.6 fl (35.1-43.9); Red Blood Count 4.65 M/mm3 (4.6-6.2); White Blood Count 4.8 K/mm3 (4.4-11.0)
[2023-11-29 11:44] LABS: Anion Gap 6 (5-15); BUN 15 mg/dL (7-18); BUN/Creat Ratio 12.2 RATIO (10-20); Calcium,Total 7.2 mg/dL (8.5-10.1); Chloride 98 mmol/L (98-107); Creatinine, Serum 1.23 mg/dL (0.70-1.30); EST Glomerular Filtration Rate 61 mL/min (>60); Est Glom Filt Rate - Afr Amer 74 mL/min (>60); Estimated Creatinine Clearance 47.77 ml/min; Glucose 154 mg/dL (74-106); Potassium 2.5 mmol/L (3.5-5.1); Sodium Level 139 mmol/L (136-145); Troponin-I HS (w/2H Reflex) 24 pg/mL (3.0-78.0)
--- NOTE | 2023-11-29 11:47 | ED.RN ---
DR. DIANA INFORMED OF CRITICAL RESULT
[2023-11-29 12:45] LABS: Magnesium 0.7 mg/dL (1.6-2.6)
--- NOTE | 2023-11-29 12:47 | ED.RN ---
Paged Dr Alvarado
[2023-11-29] MEDS: Potassium Chloride Oral Tablet 20 MEQ 40 MEQ PO (13:07)
[2023-11-29] MEDS: Potassium Chloride 10mEq/100mL 10 MEQ/100 ML IV.SOLN. 100 MEQ IV BOLUS (13:10)
[2023-11-29 13:15] LABS: Reflex Troponin-HS? (from REC) Y
--- NOTE | 2023-11-29 13:20 | EX.ED.DYSGE1 ---
HPI History of Present Illness Chief Complaint: Chest Pain Informant: patient Narrative Narrative: Patient is a 78-year-old male presenting from home with paresthesias that started in his right arm and now on his bilateral arms as well as his face. He notes he had a little bit of tightness in the left side of his chest as well today. He denies any weakness of the extremities. [place] any numbness or tingling in his lower extremities. He denies any headache or vision changes. He notes that about a week ago he was started on HCTZ 25 mg. He is currently also on bisoprolol for his hypertension. Denies any other complaints or concerns at this time. Upon further questioning notes he has been getting some cramping in his calfs over the past few days. [facility] Medical History Asthma COPD (chronic obstructive pulmonary disease) Hypertension BPH (benign prostatic hyperplasia) Dyslipidemia Barretts esophagus Home Medications ?Medication ?Instructions ?Recorded ?Last Taken ?Type bisoprolol 10 1 tab PO DAILY 04/22/21 Unknown History mg-hydrochlorothiazide 6.25 mg tablet lovastatin 20 mg tablet 20 mg PO DAILY 04/22/21 Unknown History omeprazole 20 mg tablet,delayed 20 mg PO DAILY 04/22/21 Unknown History release terazosin 2 mg capsule 2 mg PO DAILY 04/22/21 Unknown History trazodone 50 mg tablet 50 mg PO DAILY 04/22/21 Unknown History budesonide 160 mcg-glycopyr 9 2 inh inhalation BID #3 ea 07/13/22 Unknown Rx mcg-formot 4.8 mcg/actuation HFA inhaler (Breztri Aerosphere) magnesium chloride 64 mg 128 mg (2 x 64 mg magnesium) PO 11/29/23 Unknown Rx (magnesium chloride) tablet BID 2 weeks #56 tabs potassium chloride 20 mEq 20 meq PO DAILY #14 tabs 11/29/23 Unknown Rx tablet,extended release Allergy/AdvReac Type Severity Reaction Status Date / Time sulfamethoxazole (From AdvReac RASH Verified 11/29/23 10:42 Sulfamethoxazole-Trimethoprim) trimethoprim (From AdvReac RASH Verified 11/29/23 10:42 Sulfamethoxazole-Trimethoprim) Family History Father Myocardial infarction Social History Smoking Status: Former smoker quit date: 03/28/01 pack-years: 30 ROS ROS ED Constitutional Constitutional ED: Denies chills or fever(s) Cardiovascular Cardiovascular: Reports chest pain Respiratory/Chest Respiratory/Chest: Denies cough Gastrointestinal Gastrointestinal: Denies abdominal pain, nausea or vomiting Musculoskeletal Musculoskeletal: Reports myalgias; Denies back pain Integumentary Denies rash Neurologic Neurologic: Reports paresthesias; Denies headache(s) or weakness Hematologic/Lymphatic Hematologic/Lymphatic: Denies easy bleeding or easy bruising EXAM Physical Exam Const Vital Signs: 11/29/23 10:41 11/29/23 10:53 11/29/23 11:18 Temperature 96.9 F L Temperature Source Temporal Pulse Rate 59 L Respiratory Rate 19 H Respiratory Effort Normal Non-Labored Blood Pressure 185/91 H Blood Pressure Mean 122 Pulse Ox 99 Oxygen Delivery Method Room Air Room Air 11/29/23 11:41 11/29/23 12:00 11/29/23 13:00 Temperature Temperature Source Pulse Rate 64 57 L 54 L Respiratory Rate 22 H 11 L 14 Respiratory Effort Blood Pressure 145/44 H 153/92 H 168/94 H Blood Pressure Mean 77 112 118 Pulse Ox 100 Oxygen Delivery Method Room Air 11/29/23 14:00 11/29/23 15:00 Temperature Temperature Source Pulse Rate 59 L 55 L Respiratory Rate 20 H Respiratory Effort Blood Pressure 159/87 H 154/80 H Blood Pressure Mean 111 101 Pulse Ox Oxygen Delivery Method Positive well nourished and well developed General Appearance ED: well developed and NAD HEENT Reports moist mucous membranes Eyes PERRL Neck supple and no JVD Chest Wall inspection of chest normal and palpation of chest normal Resp normal respiratory effort and clear to auscultation bilaterally Cardio regular rate, regular rhythm and no murmurs Extremity normal to inspection General Extremety ED: Negative for edema or tenderness General Extremity: Negative for edema Neuro oriented x3, CN's II-XII intact bilaterally and no sensory deficits noted Neuro Narrative: Normal sensation to light touch of the face as well as the extremities. No drift appreciated. Equal roll on man strength bilaterally. 5/5 strength with plantar and dorsiflexion of the feet. Sensorium / Orientation: alert Motor Exam: strength 5/5 throughout; Negative for general weakness Psych mental status grossly normal Skin no rashes or lesions noted and no wounds MDM MDM MDM Narrative Medical decision making narrative: Patient is evaluated for paresthesias as well as episode of chest discomfort. Currently denies any chest pain. Vital signs significant for hypertension and very mild bradycardia however patient is on a beta-moriah. Protocol labs obtained which were significant for hypokalemia potassium of 2.5. I did add on a magnesium which is also low at 0.7. Patient received IV and potassium supplementation in the emergency room. I spoke with PCP on-call for him, Dr. Gibbs. He recommends stopping the patient HCTZ and restarting spironolactone which he previously been on. He will order the spironolactone. He will follow-up later this week for repeat blood pressure check and labs. Patient will also be started on oral potassium and magnesium supplementation. I will provide this prescription. At this time the patient is not have any EKG changes and is minimally symptomatic so I think is a good candidate for outpatient follow-up. Patient is agreeable this plan of care Lab Data Attestation: I reviewed the patient's lab results. Labs: Laboratory Results - last 24 hr 11/29/23 11/29/23 11/29/23 11:10 11:15 13:30 WBC 4.8 RBC 4.65 Hgb 15.1 Hct 41.5 MCV 89.2 MCH 32.5 H MCHC 36.4 H RDW Std Deviation 41.6 RDW Coeff of Concetta 12.7 Plt Count 106 L MPV 11.6 Immature Gran % (Auto) 0.200 Neut % (Auto) 55.1 Lymph % (Auto) 32.6 [place] % (Auto) 6.9 Eos % (Auto) 4.4 Baso % (Auto) 0.8 Absolute Neuts (auto) 2.6 Absolute Lymphs (auto) 1.55 Nucleated RBC % 0 Sodium 139 Potassium 2.5 L* Chloride 98 Carbon Dioxide 35.0 H Anion Gap 6 BUN 15 Creatinine 1.23 Estim Creat Clear Calc 47.77 Est GFR (MDRD) Af Amer 74 Est GFR (MDRD) Non-Af 61 BUN/Creatinine Ratio 12.2 Glucose 154 H Calcium 7.2 L Magnesium 0.7 L* Troponin I High Sens 24 21 Radiography Chest X-Ray - ED: 1 View, Read by ED Physician, Read by Radiologist and No Acute Disease Diagnostic Testing: Clinical Impression(s) from Imaging Studies Chest X-Ray 11/29/23 11:12 IMPRESSION: Stable chest with no acute or active cardiopulmonary disease. Electronically Signed: Sergio Crow MD at 12:31 EDT , Rhythm Strip Rhythm Strip: Sinus Rhythm Rate: 64 Ectopy: None EKG Initial EKG: Attestation: I personally reviewed and interpreted this EKG as follows: Interpretation: Sinus Rhythm Comments: Sinus rhythm rate of 64 bpm Normal axis Minimal voltage criteria for LVH Normal ST segments Compared to prior EKG on 05/07/2020, patient has QRS amplitude reversal in 3 and aVF and now has minimal voltage criteria for LVH Discharge Plan Triage Chief Complaint: Chest Pain ED Provider: Shereen Bill Dx/Rx/DC Orders Clinical Impression: Acute hypokalemia, Hypertension, Hypomagnesemia, Paresthesias Instructions: Hypomagnesemia Dc, ED Hypokalemia, ED Paraesthesias Prescriptions: New potassium chloride 20 mEq tablet extended release 20 meq PO DAILY Qty: 14 0RF magnesium chloride 64 mg magnesium tablet 128 mg PO BID 14 Days Qty: 56 0RF No Action terazosin 2 mg capsule 2 mg PO DAILY bisoprolol-hydrochlorothiazide 10-6.25 mg tablet 1 tab PO DAILY lovastatin 20 mg tablet 20 mg PO DAILY omeprazole 20 mg tablet,delayed release (DR/EC) 20 mg PO DAILY trazodone 50 mg tablet 50 mg PO DAILY Breztri Aerosphere 160-9-4.8 mcg/actuation HFA aerosol inhaler 2 inh inhalation BID Qty: 3 3RF Primary Care Provider: Vicente Alvarado Referrals: Vicente Alvarado MD [Primary Care Provider] - Activity Restrictions/Additional Instructions: Please follow-up with your primary care office later this week for blood pressure check and repeat check on your labs. If they do not call you today call tomorrow morning to schedule this. The office will call you in spironolactone to restart. Stop taking the hydrochlorothiazide (HCTZ). Continue taking your bisoprolol. Print Language: Luxembourgish Disposition Disposition: Home, Self Care
[2023-11-29] MEDS: Magnesium Sulfate 2 GM in Dextrose 5%-Water (100mL Bag) 100 ML IV (13:26)
[2023-11-29 13:55] LABS: Troponin-I HS 21 pg/mL (3.0-78.0)
== END 2023-11-29 16:18 | disposition home or self-care (01) ==
PROVIDERS: Emergency Provider Emergency Medicine; PCP Family Medicine; Visit Provider Emergency Medicine
DX: R07.9 Chest pain, unspecified (principal); J44.9 Chronic obstructive pulmonary disease, unspecified; E87.6 Hypokalemia; Z87.891 Personal history of nicotine dependence; E83.42 Hypomagnesemia; E78.5 Hyperlipidemia, unspecified; I10 Essential (primary) hypertension; R20.2 Paresthesia of skin; Z79.899 Other long term (current) drug therapy; J45.909 Unspecified asthma, uncomplicated; Z79.51 Long term (current) use of inhaled steroids; N40.0 Benign prostatic hyperplasia without lower urinary tract symptoms
CPT/HCPCS: 36415; 71045; 80048; 83735; 84484; 85025; 93005; 96360; 99284; J7030; A4216

== ENCOUNTER 2023-12-02 18:47 | Emergency (ER) | payer OTHER, SELFPAY ==
[2023-12-02] VITALS (7 sets, daily range): BP systolic 169–208; BP diastolic 75–116; PULSE 61–106; RESP 14–23; TEMP 36; O2SAT 95–99; BMI 29.2
--- NOTE | 2023-12-02 20:03 | EKG12_ITS ---
Test Reason : HTN Blood Pressure : / mmHG Vent. Rate : 062 BPM Atrial Rate : 062 BPM P-R Int : 140 ms QRS Dur : 084 ms QT Int : 428 ms P-R-T Axes : 039 003 025 degrees QTc Int : 434 ms Normal sinus rhythm Normal ECG Confirmed by JAVIER MAIER, TORI ([id number]), editor managing director NOEMY JC ([id number]) on 12/05/2023 6:49:04 AM Referred By: Confirmed By:TORI HERRERA MD
--- NOTE | 2023-12-02 20:04 | EDS_ITS ---
HPI History of Present Illness Chief Complaint: Hypertension Narrative Narrative: 78-year-old male past medical history of hypertension states he was in the emergency department 4 days ago, and diagnosed with hypokalemia and hypomagnesemia. He had developed a rash, and he states that the emergency physician changed his bisoprolol hydrochlorothiazide that he takes for his blood pressure to spironolactone 50 mg daily. He states that at home over the last few days his blood pressure has been running high in the 180's. He is asymptomatic with it and denies any headache, no chest pain or shortness of breath, no leg swelling. He presents because of the uncontrolled blood pressure and elevated above his normal. He states that he was told to stop taking his medication and take the spironolactone instead. [facility] Medical History Asthma COPD (chronic obstructive pulmonary disease) Hypertension BPH (benign prostatic hyperplasia) Dyslipidemia Barretts esophagus Home Medications ?Medication ?Instructions ?Recorded ?Last Taken ?Type bisoprolol 10 1 tab PO DAILY 04/22/21 Unknown History mg-hydrochlorothiazide 6.25 mg tablet lovastatin 20 mg tablet 20 mg PO DAILY 04/22/21 Unknown History omeprazole 20 mg tablet,delayed 20 mg PO DAILY 04/22/21 Unknown History release terazosin 2 mg capsule 2 mg PO DAILY 04/22/21 Unknown History trazodone 50 mg tablet 50 mg PO DAILY 04/22/21 Unknown History budesonide 160 mcg-glycopyr 9 2 inh inhalation BID #3 ea 07/13/22 Unknown Rx mcg-formot 4.8 mcg/actuation HFA inhaler (Breztri Aerosphere) magnesium chloride 64 mg 128 mg (2 x 64 mg magnesium) PO 11/29/23 Unknown Rx (magnesium chloride) tablet BID 2 weeks #56 tabs potassium chloride 20 mEq 20 meq PO DAILY #14 tabs 11/29/23 Unknown Rx tablet,extended release bisoprolol fumarate 10 mg tablet 10 mg PO DAILY #30 tabs 12/02/23 Unknown Rx Allergy/AdvReac Type Severity Reaction Status Date / Time sulfamethoxazole (From AdvReac RASH Verified 12/02/23 18:48 Sulfamethoxazole-Trimethoprim) trimethoprim (From AdvReac RASH Verified 12/02/23 18:48 Sulfamethoxazole-Trimethoprim) Family History Father Myocardial infarction Social History Smoking Status: Former smoker quit date: 03/28/01 pack-years: 30 ROS ROS ED ROS Narrative Constitutional: No fever, no chills. Elevated blood pressure. HEENT: No sore throat. No neck pain. No loss of vision. No rhinorrhea. Cardiovascular: No chest pain. No palpitations. No pedal edema. Respiratory: No cough, no shortness of breath. Abdominal: No abdominal pain. No nausea. No vomiting. Genitourinary: No dysuria. No hematuria. Musculoskeletal: No myalgias. No arthralgias. Neurologic: No headaches. No dizziness. No lightheadedness. Skin: No rash. No change in color. EXAM Physical Exam Narrative Exam Narrative: Afebrile. Vital signs noted. Blood pressure noted to be 208/100. Cardiovascular examination reveals a regular rate and rhythm. Lungs are clear to auscultation bilaterally. Abdomen soft nontender with normoactive bowel sounds. Neurological examination is nonfocal and nonlateralizing. He is awake, alert, and oriented. No evidence of pedal edema. Const Vital Signs: 12/02/23 18:48 12/02/23 20:03 12/02/23 20:28 Temperature 96.8 F L Temperature Source Temporal Pulse Rate 66 64 Respiratory Rate 18 14 Respiratory Effort Normal Non-Labored Respiratory Pattern Normal Blood Pressure 208/100 H Blood Pressure Mean 136 Pulse Ox 99 98 Oxygen Delivery Method Room Air 12/02/23 20:30 12/02/23 20:45 12/02/23 20:47 Temperature Temperature Source Pulse Rate 63 106 H Respiratory Rate 19 H 19 H Respiratory Effort Respiratory Pattern Blood Pressure 183/116 H 169/105 H 190/75 H Blood Pressure Mean 135 119 113 Pulse Ox 95 Oxygen Delivery Method Room Air 12/02/23 21:00 Temperature Temperature Source Pulse Rate 61 Respiratory Rate 23 H Respiratory Effort Respiratory Pattern Blood Pressure 183/91 H Blood Pressure Mean 118 Pulse Ox Oxygen Delivery Method MDM MDM MDM Narrative Medical decision making narrative: There may have been confusion on whether the patient was to switch medications or add the spironolactone 50 mg orally to his current blood pressure medication. Although he is asymptomatic with his elevated blood pressure, he will be given hydralazine 10 mg intravenously initially. I will recheck his potassium and magnesium as he states he has been taking this. EKG will be obtained as well as a single troponin. I reviewed his prior ED visit. In reviewing his prior visit, he told the physician that he has recently started hydrochlorothiazide 25 mg orally and was also on a beta-moriah. The ED physician had discussed patient with Dr. Gibbs on-call for the patient's primary care provider who instructed that he should stop the hydrochlorothiazide but still continue the beta-moriah and that he would add spironolactone. In review of the patient's current medication, he is currently on a combination pill of bisoprolol 10 mg and hydrochlorothiazide 6.25 mg. EKG was obtained and interpreted by myself independently as normal sinus rhythm at 62 bpm without ectopy or acute ST changes. No STEMI. I reviewed his laboratory work and he has normal white count of 6.3 with hemoglobin normal at 14.5, hematocrit 40.8 and platelet count low at 125. This is a chronic thrombocytopenia. His electrolyte panel is grossly unremarkable with normal potassium of 3.9. While his magnesium is still low at 1.3, it is markedly improved over previous. He will continue his magnesium supplementation. His blood pressure has now come down to a more acceptable level systolically. I think there was a misunderstanding and that he was not taking his combination pill and was only taking spironolactone and attempt to control his blood pressure. I discussed the patient with Dr. Almonte for Dr. Alvarado and she agrees with writing the patient a prescription for his beta-moriah 10 mg by itself, and to continue the spironolactone. He is to keep a log of his blood pressures and follow-up with the office on Tuesday for an appointment to be seen Tuesday afternoon. I feel he be discharged to follow-up. Return instructions reviewed. Disposition is discharged home in stable condition. History & Record Review Discussion w/independent historian: Patient Additional record(s) reviewed:: Prior ED visit and Prior labs Lab Data Attestation: I reviewed the patient's lab results. Labs: Laboratory Results - last 24 hr 12/02/23 20:18 WBC 6.3 RBC 4.48 L Hgb 14.5 Hct 40.8 MCV 91.1 MCH 32.4 H MCHC 35.5 RDW Std Deviation 43.0 RDW Coeff of Concetta 13.1 Plt Count 125 L MPV 12.1 H Immature Gran % (Auto) 0.300 Neut % (Auto) 42.7 L Lymph % (Auto) 41.9 H [place] % (Auto) 8.1 Eos % (Auto) 5.7 H Baso % (Auto) 1.3 H Absolute Neuts (auto) 2.7 Absolute Lymphs (auto) 2.65 Nucleated RBC % 0 Sodium 139 Potassium 3.9 Chloride 106 Carbon Dioxide 25.0 Anion Gap 8 BUN 13 Creatinine 0.99 Estim Creat Clear Calc 66.06 Est GFR (MDRD) Af Amer 95 Est GFR (MDRD) Non-Af 79 BUN/Creatinine Ratio 13.2 Glucose 94 Calcium 8.7 Magnesium 1.3 L Total Bilirubin 0.60 AST 26 ALT 20 Alkaline Phosphatase 85 Troponin I High Sens 10 Total Protein 6.9 Albumin 3.9 Globulin 3.0 Albumin/Globulin Ratio 1.3 Discharge Plan Triage Chief Complaint: Hypertension ED Provider: Donavan Leong Dx/Rx/DC Orders Clinical Impression: Hypomagnesemia, Hypertension Instructions: ED Hypertension, Established, ED High Blood Pressure Hypertension Prescriptions: New bisoprolol fumarate 10 mg tablet 10 mg PO DAILY Qty: 30 0RF No Action terazosin 2 mg capsule 2 mg PO DAILY bisoprolol-hydrochlorothiazide 10-6.25 mg tablet 1 tab PO DAILY lovastatin 20 mg tablet 20 mg PO DAILY omeprazole 20 mg tablet,delayed release (DR/EC) 20 mg PO DAILY trazodone 50 mg tablet 50 mg PO DAILY Breztri Aerosphere 160-9-4.8 mcg/actuation HFA aerosol inhaler 2 inh inhalation BID Qty: 3 3RF potassium chloride 20 mEq tablet extended release 20 meq PO DAILY Qty: 14 0RF magnesium chloride 64 mg magnesium tablet 128 mg PO BID 14 Days Qty: 56 0RF Primary Care Provider: Vicente Alvarado Referrals: Vicente Alvarado MD [Primary Care Provider] - 3-5 Days Activity Restrictions/Additional Instructions: For control of your blood pressure you should be taking bisoprolol 10 mg orally along with spironolactone 50 mg orally once a day. Follow-up with your primary care provider in the next 3 to 5 days for blood pressure check. Return with sym ptoms of chest pain, shortness of breath, headache, or any new or worsening symptoms. Do not take any medications that contain hydrochlorothiazide or HCTZ. Print Language: Hungarian Disposition Disposition: Home, Self Care
[2023-12-02] MEDS: hydrALAZINE 20 MG/ML Vial 10 MG IV (20:18)
[2023-12-02 20:32] LABS: Absolute Lymphocyte Count 2.65 X10^3/uL (0.83-4.51); Absolute Neutrophil Count 2.7 X10^3/uL (2.0-7.7); Basophil# 0.08 X10^3/uL; Basophil% 1.3 % (0-1); Eosinophil# 0.36 X10^3/uL; Eosinophils% 5.7 % (0-5); Hematocrit 40.8 % (40-54); Hemoglobin 14.5 g/dL (13.0-16.5); Lymphocyte # 2.65 X10^3/ul (0.83-4.51); Lymphocyte % 41.9 % (19-41); Mean Corp Hgb Conc 35.5 g/dL (32-36); Mean Corpuscular Hgb 32.4 pg (27.0-32.0); Mean Corpuscular Volume 91.1 fL (80-94); Mean Platelet Vol. 12.1 fl (6.2-12.0); Monocyte# 0.51 X10^3/uL; Monocyte% 8.1 % (0-10); NRBC Flagged by Analyzer 0 % (0-5); Neutrophil # 2.71 X10^3/uL (2.7-7.7); Neutrophil % 42.7 % (47-70); Platelet Count 125 K/mm3 (150-450); RBC Distribution Width CV 13.1 % (11.6-14.6); Red Blood Count 4.48 M/mm3 (4.6-6.2); White Blood Count 6.3 K/mm3 (4.4-11.0)
[2023-12-02 20:50] LABS: ALB/GLOB Ratio 1.3 RATIO (0.9-2.4); AST(SGOT) 26 U/L (15-37); Alanine Aminotransfer ALT/SGPT 20 U/L (16-61); Albumin, Serum 3.9 g/dL (3.2-5.0); Alkaline Phosphatase 85 U/L (45-117); Anion Gap 8 (5-15); BUN 13 mg/dL (7-18); BUN/Creat Ratio 13.2 RATIO (10-20); Calcium,Total 8.7 mg/dL (8.5-10.1); Chloride 106 mmol/L (98-107); Creatinine, Serum 0.99 mg/dL (0.70-1.30); EST Glomerular Filtration Rate 79 mL/min (>60); Est Glom Filt Rate - Afr Amer 95 mL/min (>60); Estimated Creatinine Clearance 66.06 ml/min; Glucose 94 mg/dL (74-106); Magnesium 1.3 mg/dL (1.6-2.6); Potassium 3.9 mmol/L (3.5-5.1); Protein, Total 6.9 g/dL (6.4-8.2); Sodium Level 139 mmol/L (136-145); Troponin-I HS 10 pg/mL (3.0-78.0)
[2023-12-02] MEDS: Metoprolol(XL)Succ 25 MG Tablet PO (21:48)
== END 2023-12-02 21:49 | disposition home or self-care (01) ==
PROVIDERS: Emergency Provider Emergency Medicine; PCP Family Medicine; Visit Provider Emergency Medicine
DX: I10 Essential (primary) hypertension (principal); J44.9 Chronic obstructive pulmonary disease, unspecified; E83.42 Hypomagnesemia; E78.5 Hyperlipidemia, unspecified; Z87.891 Personal history of nicotine dependence; Z79.51 Long term (current) use of inhaled steroids; N40.0 Benign prostatic hyperplasia without lower urinary tract symptoms; Z79.899 Other long term (current) drug therapy
CPT/HCPCS: 80053; 83735; 84484; 85025; 93005; 99284; A4216

== ENCOUNTER → 2023-12-06 | Outpatient (CLI) | payer MEDICARE, SELFPAY ==
[2023-12-06 16:31] LABS: Anion Gap 8 (5-15); BUN 23 mg/dL (7-18); BUN/Creat Ratio 20.7 RATIO (10-20); Calcium,Total 9.4 mg/dL (8.5-10.1); Chloride 104 mmol/L (98-107); Creatinine, Serum 1.11 mg/dL (0.70-1.30); EST Glomerular Filtration Rate 68 mL/min (>60); Est Glom Filt Rate - Afr Amer 83 mL/min (>60); Glucose 91 mg/dL (74-106); Magnesium 1.8 mg/dL (1.6-2.6); Potassium 4.2 mmol/L (3.5-5.1); Sodium Level 136 mmol/L (136-145)
== END | disposition home or self-care (01) ==
LOC: MTLAB 12:59
PROVIDERS: PCP Family Medicine; Referring Provider Family Medicine; Visit Provider Family Medicine
DX: E83.42 Hypomagnesemia (principal); E87.6 Hypokalemia
CPT/HCPCS: 36415; 80048; 83735

== ENCOUNTER 2024-07-25 13:16 | Emergency (ER) | payer OTHER, SELFPAY ==
[2024-07-25 13:17] VITALS: BP 139/103; PULSE 87; RESP 15; TEMP 36.4; O2SAT 95; BMI 27.0
--- NOTE | 2024-07-25 14:06 | EX.ED.DYSGE1 ---
HPI History of Present Illness Chief Complaint: Nausea/Vomiting/Diarrhea Narrative Narrative: Patient is a 78-year-old male with past medical history hypertension, dyslipidemia, COPD, asthma who presents to the emergency department with the chief complaint of nausea vomiting diarrhea. Patient states that he vomited last around 1:00 this afternoon and now he feels much better. He states that he does not know if he has a viral illness or a bad mushroom that he ate for dinner last night. Patient denies recent sick contacts. Patient denies any other symptoms denies dark tarry stools denies blood in the stool. [facility] Medical History Asthma COPD (chronic obstructive pulmonary disease) Hypertension BPH (benign prostatic hyperplasia) Dyslipidemia Barretts esophagus Home Medications ?Medication ?Instructions ?Recorded ?Last Taken ?Type lovastatin 20 mg tablet 20 mg PO DAILY 04/22/21 07/24/24 History terazosin 2 mg capsule 2 mg PO DAILY 04/22/21 07/24/24 History budesonide 160 mcg-glycopyr 9 2 inh inhalation BID #3 ea 07/13/22 07/25/24 Rx mcg-formot 4.8 mcg/actuation HFA inhaler (Breztri Aerosphere) losartan 100 mg tablet 100 mg PO QDAY 05/21/24 07/25/24 History pantoprazole 40 mg tablet,delayed 40 mg PO QDAY 05/21/24 07/25/24 History release spironolactone 50 mg tablet 50 mg PO QDAY 05/21/24 07/24/24 History dicyclomine 20 mg tablet 20 mg PO TID PRN abdominal pain 07/25/24 Unknown Rx #30 tabs ondansetron 4 mg disintegrating 4 mg PO Q6H PRN nausea and 07/25/24 Unknown Rx tablet vomiting #30 tabs zolpidem 10 mg tablet 10 mg PO QHS PRN 07/25/24 07/24/24 History Allergy/AdvReac Type Severity Reaction Status Date / Time sulfamethoxazole (From AdvReac RASH Verified 07/25/24 13:17 Sulfamethoxazole-Trimethoprim) trimethoprim (From AdvReac RASH Verified 07/25/24 13:17 Sulfamethoxazole-Trimethoprim) Family History Father Myocardial infarction Social History household members: spouse current occupational status: employed Smoking Status: Former smoker quit date: 03/28/01 pack-years: 30 alcohol intake: current substance use type: does not use ROS ROS ED ROS Narrative Constitutional: Denies fever, chills, headaches, lightness, dizziness Eyes: Denies change in vision blurry vision Cardiovascular: Denies chest pain or palpitations Respiratory: Denies coughing wheezing shortness of breath Abdomen: Complains of nausea vomiting diarrhea as noted above denies any abdominal pain, denies black stools denies blood in his stool : Denies urinary symptoms Neurological: Denies numbness, weakness, tingling Musculoskeletal: Denies back pain Skin: Denies rashes or lesions EXAM Physical Exam Narrative Exam Narrative: General: Patient lying in bed rest comfortably did not appear to be in acute distress Head: Atraumatic, normocephalic Eyes: PERRL bilaterally, EOMI bilaterally, no conjunctival injection noted Neck: Soft, supple, trachea midline Cardiovascular: Regular rate and rhythm no murmurs gallops rubs noted Respiratory: Clear to auscultation bilaterally Abdomen: Soft, nondistended, no tenderness to palpation Extremities: +5/5 strength noted in the bilateral upper and lower extremities, radial pulses +2/4 in the bilateral extremities Neurological: Patient follow commands knew that he was at [facility] the year is 2024 Skin: Warm, dry, intact no rashes or lesions noted Const Vital Signs: 07/25/24 13:17 Temperature 97.5 F L Temperature Source Temporal Pulse Rate 87 Respiratory Rate 15 Blood Pressure 139/103 H Blood Pressure Mean 115 Pulse Ox 95 Oxygen Delivery Method Room Air MDM MDM MDM Narrative Medical decision making narrative: Patient is a 78-year-old male who presents to the emergency department chief complaint of nausea vomiting diarrhea. At this point in time the patient is nontoxic in appearance with stable vital signs and states that he feels well has benign abdominal exam. I educated him on continuing supportive care with ensuring that he is hydrating orally with water, Gatorade Pedialyte etc. and starting with a bland diet and advance as tolerated. Patient was advised to follow-up with his physician tomorrow at his scheduled appointment. Patient be given prescriptions for Zofran and Bentyl. He is encouraged to return with worsening symptoms or concerns. He is agreeable this plan all question concerns answered he was discharged home in stable condition. Significant other bedside is also agreeable with this plan. Discharge Plan Triage Chief Complaint: Nausea/Vomiting/Diarrhea ED Provider: Josr Ko Dx/Rx/DC Orders Clinical Impression: Viral gastroenteritis Prescriptions: New ondansetron 4 mg tablet,disintegrating 4 mg PO Q6H PRN (Reason: nausea and vomiting) Qty: 30 0RF dicyclomine 20 mg tablet 20 mg PO TID PRN (Reason: abdominal pain) Qty: 30 0RF No Action terazosin 2 mg capsule 2 mg PO DAILY lovastatin 20 mg tablet 20 mg PO DAILY Breztri Aerosphere 160-9-4.8 mcg/actuation HFA aerosol inhaler 2 inh inhalation BID Qty: 3 3RF spironolactone 50 mg tablet 50 mg PO QDAY losartan 100 mg tablet 100 mg PO QDAY Rx Instructions: pcp told pt to take 50mg due to dizziness pantoprazole 40 mg tablet,delayed release (DR/EC) 40 mg PO QDAY zolpidem 10 mg tablet 10 mg PO QHS PRN Primary Care Provider: Vicente Alvarado Referrals: Vicente Alvarado MD [Primary Care Provider] - Activity Restrictions/Additional Instructions: Follow-up with your doctor in the outpatient setting at your scheduled appointment tomorrow. Take the prescriptions as prescribed. Return for worsening symptoms or any concerns. Continue supportive care Ensure adequate hydration with Pedialyte, Powerade, water etc. Start with bland diet and advance as tolerated. Print Language: Beninese Disposition Disposition: Home, Self Care
[2024-07-25 14:27] VITALS: BP 142/86; PULSE 87; RESP 16; TEMP 36.6; O2SAT 99
== END 2024-07-25 14:27 | disposition home or self-care (01) ==
PROVIDERS: Emergency Provider Emergency Medicine; PCP Family Medicine; Referring Provider Emergency Medicine; Visit Provider Emergency Medicine
DX: A08.4 Viral intestinal infection, unspecified (principal); J44.9 Chronic obstructive pulmonary disease, unspecified; I10 Essential (primary) hypertension; E78.5 Hyperlipidemia, unspecified; Z87.891 Personal history of nicotine dependence; N40.0 Benign prostatic hyperplasia without lower urinary tract symptoms; Z79.899 Other long term (current) drug therapy; Z79.51 Long term (current) use of inhaled steroids
CPT/HCPCS: 99283

== ENCOUNTER 2024-08-01 18:33 | Emergency (ER) | payer OTHER, SELFPAY ==
[2024-08-01 18:34] VITALS: BP 145/87; PULSE 108; RESP 18; TEMP 36.8; O2SAT 99; BMI 27.3
--- NOTE | 2024-08-01 19:25 | EKG12_ITS ---
Test Reason : Blood Pressure : */* mmHG Vent. Rate : 96 BPM Atrial Rate : 96 BPM P-R Int : 128 ms QRS Dur : 80 ms QT Int : 350 ms P-R-T Axes : 22 1 25 degrees QTcB Int : 442 ms Normal sinus rhythm Nonspecific ST abnormality Abnormal ECG Confirmed by Thang Barth ([id number]), makeup editor NOEMY JC ([id number]) on 08/03/2024 12:14:20 PM Referred By: Confirmed By: Thang Barth
--- NOTE | 2024-08-01 19:26 | EX.ED.DYSGE1 ---
HPI History of Present Illness Chief Complaint: Syncope Detail of Chief Complaint: Dizziness and fall Informant: patient and spouse/S.O. Narrative Narrative: Patient presents the emergency department with complaint of a fall today due to dizziness. Patient states that he was in the kitchen looking for a snack and walked back to the bedroom to watch TV he and he missed the chair and went to the ground but he grabbed a chair. He did not sustain an injury. He has been feeling lightheaded and dizzy for about a month ever since his blood pressure medication got adjusted. Patient was started on initially losartan 100 mg and has slowly been weaned down to 20 mg a day. Today he took a 50 mg tablet. He denies chest pain. Denies shortness of breath. Denies recent travel or surgery. He states that last week for a day he had a bout of the stomach flu PFSH PFS Medical History Asthma COPD (chronic obstructive pulmonary disease) Hypertension BPH (benign prostatic hyperplasia) Dyslipidemia Barretts esophagus Home Medications ?Medication ?Instructions ?Recorded ?Last Taken ?Type lovastatin 20 mg tablet 20 mg PO DAILY 04/22/21 07/24/24 History terazosin 2 mg capsule 2 mg PO DAILY 04/22/21 07/24/24 History budesonide 160 mcg-glycopyr 9 2 inh inhalation BID #3 ea 07/13/22 07/25/24 Rx mcg-formot 4.8 mcg/actuation HFA inhaler (Breztri Aerosphere) losartan 100 mg tablet 50 mg PO QDAY 05/21/24 07/25/24 History pantoprazole 40 mg tablet,delayed 40 mg PO QDAY 05/21/24 07/25/24 History release spironolactone 50 mg tablet 50 mg PO QDAY 05/21/24 07/24/24 History zolpidem 10 mg tablet 10 mg PO QHS PRN 07/25/24 07/24/24 History Allergy/AdvReac Type Severity Reaction Status Date / Time sulfamethoxazole (From AdvReac RASH Verified 08/01/24 18:33 Sulfamethoxazole-Trimethoprim) trimethoprim (From AdvReac RASH Verified 08/01/24 18:33 Sulfamethoxazole-Trimethoprim) Family History Father Myocardial infarction Social History household members: spouse current occupational status: employed Smoking Status: Former smoker quit date: 03/28/01 pack-years: 30 alcohol intake: current substance use type: does not use ROS ROS ED Review of Systems ROS Unobtainable: other Constitutional Constitutional ED: Reports lethargy; Denies chills, fever(s), sweats or weight loss Eyes Eyes: Denies blurry vision, change in vision or diplopia ENT ENT ED: Denies rhinorrhea or sore throat Cardiovascular Cardiovascular: Reports racing heartbeat; Denies chest pain or orthopnea Respiratory/Chest Respiratory/Chest: Reports dyspnea and dyspnea on exertion; Denies cough, orthopnea or sputum Gastrointestinal Gastrointestinal: Denies abdominal pain, diarrhea, nausea or vomiting Genitourinary Genitourinary ED: Denies dysuria, hematuria or urinary frequency Musculoskeletal Musculoskeletal: Denies arthralgias, back pain, myalgias or neck pain Integumentary Denies abscess, Abrasions or rash Neurologic Neurologic: Reports other Details: Dizziness ; Denies headache(s) or weakness Psychiatric Psychiatric: Denies anxiety, depression or suicidal thoughts Endocrine Endocrinology: Denies polydipsia, polyphagia or polyuria Hematologic/Lymphatic Hematologic/Lymphatic: Denies easy bleeding, easy bruising or lymphadenopathy Allergic/Immunologic Allergic/Immunologic ED: Denies mouth swelling, tongue swelling or urticaria EXAM Physical Exam Narrative Exam Narrative: Patient noted to have systolic of 97 as I enter the room. Const Vital Signs: 08/01/24 18:34 08/01/24 19:07 08/01/24 19:32 Temperature 98.3 F Temperature Source Oral Pulse Rate 108 H 91 Respiratory Rate 18 12 Respiratory Effort Normal Non-Labored Respiratory Pattern Normal Blood Pressure 145/87 H 97/72 Blood Pressure [Lying] Blood Pressure [Sitting (for 1 minute prior to obtaining)] Blood Pressure [Standing (for 1 minute prior to obtaining)] Blood Pressure Mean 106 80 Blood Pressure Mean [Lying] Blood Pressure Mean [Sitting (for 1 minute prior to obtaining)] Blood Pressure Mean [Standing (for 1 minute prior to obtaining)] Pulse Ox 99 95 Oxygen Delivery Method Room Air Room Air 08/01/24 19:42 08/01/24 20:00 08/01/24 21:00 Temperature Temperature Source Pulse Rate 101 H 87 Respiratory Rate 16 Respiratory Effort Respiratory Pattern Blood Pressure 130/88 H 125/82 H Blood Pressure [Lying] 117/70 Blood Pressure [Sitting (for 1 minute prior to obtaining)] 133/87 H Blood Pressure [Standing (for 1 minute prior to obtaining)] 120/68 Blood Pressure Mean 102 96 Blood Pressure Mean [Lying] 85 Blood Pressure Mean [Sitting (for 1 minute prior to obtaining)] 102 Blood Pressure Mean [Standing (for 1 minute prior to obtaining)] 85 Pulse Ox 95 96 Oxygen Delivery Method Room Air Positive well nourished and well developed General Appearance ED: well developed and NAD HEENT Reports TM's clear and moist mucous membranes normocephalic and atraumatic; Negative for trauma or tenderness Tympanic Membrane ED: Yes TM's clear Eyes PERRL and EOMs intact bilaterally General Eye ED: Negative for pale conjunctiva or scleral icterus Neck no lymphadenopathy, supple and no JVD General: Negative for tenderness Chest Wall inspection of chest normal and palpation of chest normal Chest: Negative for tenderness Resp normal respiratory effort and clear to auscultation bilaterally Effort and Inspection: Negative for respiratory distress or pain with movement Auscultation: Negative for rhonchi, wheezes or diminished lung sounds Cardio regular rate, regular rhythm, S1 normal heart sound, S2 normal heart sound and no murmurs Peripheral Pulses: pulses 2+ throughout GI normal to inspection, nondistended, normoactive bowel sounds, soft to palpation, non-tender, non-distended and no masses Back/Spine no CVA tenderness and no thoracic nor lumbar tenderness Extremity normal to inspection General Extremety ED: Negative for edema General Extremity: Negative for edema Neuro oriented x3, CN's II-XII intact bilaterally, no sensory deficits noted and gait normal Sensorium / Orientation: awake, alert, oriented to person, oriented to place and oriented to time Motor Exam: strength 5/5 throughout and strength abnormal Psych mental status grossly normal Skin no rashes or lesions noted and no wounds MDM MDM MDM Narrative Medical decision making narrative: Patient presents with lightheadedness and fall. No injury. Has been dizzy for over a month. Having blood pressure medication adjusted currently. Clinically looks well. Will obtain EKG and basic labs as well as troponin. Will obtain orthostatic vital signs. EKG obtained on arrival shows a sinus rhythm with ventricular rate of 96 bpm with no acute ST segment changes. CBC with a white of 8.1 with hemoglobin 16 and platelet count of 169. Chemistries unremarkable. Troponin initially was 18. Delta troponin 2-hour was also 18. Orthostatic vital signs were normal. This point etiology for his near syncope unclear although he was mildly hypotensive on arrival and may be related to blood pressure medication. At this point he is advised to take the lower dose of the 20 mg of the losartan daily and follow-up with his primary care physician within the next 3 to 5 days. Lab Data Attestation: I reviewed the patient's lab results. Labs: Laboratory Results - last 24 hr 08/01/24 08/01/24 18:30 20:24 WBC 8.1 RBC 4.78 Hgb 16.0 Hct 43.5 MCV 91.0 MCH 33.5 H MCHC 36.8 H RDW Std Deviation 41.8 RDW Coeff of [place] 12.6 Plt Count 169 MPV 11.3 Immature Gran % (Auto) 0.200 Neut % (Auto) 57.5 Lymph % (Auto) 30.6 [place] % (Auto) 7.6 Eos % (Auto) 3.1 Baso % (Auto) 1.0 Absolute Neuts (auto) 4.6 Absolute Lymphs (auto) 2.46 Nucleated RBC % 0 Sodium 140 Potassium 3.8 Chloride 102 Carbon Dioxide 20.7 L Anion Gap 17 H BUN 19 Creatinine 1.43 H Estim Creat Clear Calc 44.39 L Est GFR (MDRD) Non-Af 51 L BUN/Creatinine Ratio 12.9 Glucose 104 H Calcium 9.4 Troponin T High Sens 18 Troponin T Hi Sens 2 Hr 18 EKG Initial EKG: Attestation: I personally reviewed and interpreted this EKG as follows: Comments: Sinus rhythm with ventricular rate of 96 bpm with no acute ST segment changes Discharge Plan Triage Chief Complaint: Syncope ED Provider: Jo Zhao Dx/Rx/DC Orders Clinical Impression: Near syncope, Hypotension Instructions: Hypotension Dc, ED Dizziness, Uncertain Cause, ED Near-Fainting, Uncertain Cause Prescriptions: No Action terazosin 2 mg capsule 2 mg PO DAILY lovastatin 20 mg tablet 20 mg PO DAILY Breztri Aerosphere 160-9-4.8 mcg/actuation HFA aerosol inhaler 2 inh inhalation BID Qty: 3 3RF spironolactone 50 mg tablet 50 mg PO QDAY losartan 100 mg tablet 50 mg PO QDAY Rx Instructions: pcp told pt to take 50mg due to dizziness pantoprazole 40 mg tablet,delayed release (DR/EC) 40 mg PO QDAY zolpidem 10 mg tablet 10 mg PO QHS PRN Primary Care Provider: Vicente Alvarado Referrals: Vicente Alvarado MD [Primary Care Provider] - Print Language: Austrian Disposition Disposition: Home, Self Care
[2024-08-01 19:32] VITALS: BP 97/72; PULSE 91; RESP 12; O2SAT 95
[2024-08-01 19:42] VITALS: BP 117/70; BP 120/68; BP 133/87
[2024-08-01 20:00] VITALS: BP 130/88; PULSE 101; O2SAT 95
[2024-08-01 20:01] LABS: Anion Gap 17 (5-15); BUN 19 mg/dL (4-19); BUN/Creat Ratio 12.9 RATIO (10-20); Calcium,Total 9.4 mg/dL (7.6-11.0); Carbon Dioxide 20.7 mmol/L (21.0-32.0); Chloride 102 mmol/L (98-108); Creatinine, Serum 1.43 mg/dL (0.70-1.20); EST Glomerular Filtration Rate 51 (>60); Estimated Creatinine Clearance 44.39 ml/min (50-250); Glucose 104 mg/dL (70-99); Potassium 3.8 mmol/L (3.3-5.1); Sodium Level 140 mmol/L (133-145); Troponin T High Sensitivity 18 ng/L (<=22)
[2024-08-01 20:13] LABS: Absolute Lymphocyte Count 2.46 X10^3/uL (0.83-4.51); Absolute Neutrophil Count 4.6 X10^3/uL (2.0-7.7); Basophil# 0.08 X10^3/uL; Eosinophil# 0.25 X10^3/uL; Eosinophils% 3.1 % (0-5); Hematocrit 43.5 % (40-54); Lymphocyte # 2.46 X10^3/ul (0.83-4.51); Lymphocyte % 30.6 % (19-41); Mean Corp Hgb Conc 36.8 g/dL (32-36); Mean Corpuscular Hgb 33.5 pg (27.0-32.0); Mean Platelet Vol. 11.3 fl (6.2-12.0); Monocyte# 0.61 X10^3/uL; Monocyte% 7.6 % (0-10); NRBC Flagged by Analyzer 0 % (0-5); Neutrophil # 4.63 X10^3/uL (2.7-7.7); Neutrophil % 57.5 % (47-70); Platelet Count 169 K/mm3 (150-450); RBC Distribution Width CV 12.6 % (11.6-14.6); RBC Distribution Width SD 41.8 fl (35.1-43.9); Red Blood Count 4.78 M/mm3 (4.6-6.2); White Blood Count 8.1 K/mm3 (4.4-11.0)
[2024-08-01 20:58] LABS: Troponin T High Sens 2 HR 18 ng/L (<=22)
[2024-08-01 21:00] VITALS: BP 125/82; PULSE 87; RESP 16; O2SAT 96
[2024-08-01 21:36] VITALS: BP 121/84; PULSE 93; RESP 18; TEMP 36.6; O2SAT 95
== END 2024-08-01 21:39 | disposition home or self-care (01) ==
PROVIDERS: Emergency Provider Emergency Medicine; PCP Family Medicine; Visit Provider Emergency Medicine
DX: R55 Syncope and collapse (principal); J44.9 Chronic obstructive pulmonary disease, unspecified; I95.9 Hypotension, unspecified; I10 Essential (primary) hypertension; Z87.891 Personal history of nicotine dependence; E78.5 Hyperlipidemia, unspecified; N40.0 Benign prostatic hyperplasia without lower urinary tract symptoms; R42 Dizziness and giddiness; R06.09 Other forms of dyspnea
CPT/HCPCS: 80048; 84484; 85025; 93005; 99284

== ENCOUNTER 2024-08-22 10:30 | Outpatient (RCR) | payer MEDICARE, SELFPAY ==
--- NOTE | 2024-08-10 08:55 | HP.PTEVAL ---
Patient's Visit Information Visit Information Visit Information: RIANNA MASON is a 78 year old M referred to Physical Therapy by Dr. Sean Cardenas DC with a diagnosis of vertigo. Date of Evaluation: 08/10/24 Physical Therapist: Jorgito Stern, YAJAIRAT, OCS, CSCS Visit Plan Frequency: 1x/Week Duration: 4-6 Weeks Plan: weekly x 3-6 for progression of balance and VOR exercises,adaptation. IE HEP VOR H and V 60 sec 6x/day and balance safety. next will need balance and VOR progression, monitor positional as needed. Subjective Subjective: Started about 3 weeks ago, was doing yard work which is normal and started spinning when he bent over. Sitting is not a problem. Er tested with scans and EKG and blood work was fine. Sent to doctor, Gave prednisone adn dizzy drug. Did not help. Still unsteady some timees walking bed room to kitchen is rough, getting up from chair is rough. Gets unsteady. Can happen with lying or sitting up. Last spinning was this morning getting ready. Basic ADLs, all I slow but able. Hobbies: yard work or golf. Golfed last week and went OK. Yard work is slower and cautious. 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 Objective Objective: Walks into PT without AD i and safely but slowly. Trasnfers bed and chair I without UE. Steps reciprocal but requires railing for safety. cervical aROM wFL and not overly hesitant. UE AROM WFL and strength 4/5 without myotomal problems. - B hallpike lissa - roll test Oculomotor: - skew eye deviation - ocular tilt normal pursuit and saccades, L head thrust slight +, VOR makes dizzy slight for 15 seconds H 60 Bend and recover adn MSQ positions do not cause dizzyness. Mostly unsteadiness is complaint today with movement, only created dizzyness is with VOR DVA 6 lines different from SVA Balance/Special Test Scores Functional Gait Assessment Score: 26 % Disability: 13.3400 Dizziness Score: 48 Goals Goal 1:: Pt feel 95% back to normal steadyness and balance Goal Time Frame: 4-6 Weeks Goal 2:: FGA score 28 Goal Time Frame: 4-6 Weeks Goal 3:: VOR 60 seconds without symptoms Goal Time Frame: 4-6 Weeks Goal 4:: Golf back to normal feeling. Goal Time Frame: 4-6 Weeks Goal 5:: <10 on DHI Rehabilitation Potential Physical Therapy Diagnosis: unsteadiness after acute vertigo, appropriate for PT Rehabilitation Potential: Good Anticipated Interventions Patient/Client Instruction: Educate patient on: Condition and Plan of Care For the Purpose of:: To increase tolerance to activity/condition/position and To improve gait and locomotor functions Therapeutic Exercise to Include: Balance training Comment: adapatation For the Purpose of:: To improve ability of physical actions for home/community/work/leisure, To improve gait and locomotor functions and To improve safety Text: Thank you for the opportunity to evaluate your patient. For Medicare and Medicare HMO plans, please review the plan of care and approve it. It will need to be FAXED BACK to us at [phone] for Medicare purposes. For Medicare only, by signing this I certify the plan of care. Please let me know if there are questions or concerns regarding this plan of care. Physician Signature: Date:
--- NOTE | 2024-08-22 10:55 | HP.PTDCSUM ---
Discharge Summary D/C summary: It has been my pleasure to treat RIANNA MASON referred by Vicente Alvarado MD, with the diagnosis of vertigo for a total of 3 visit(s). Discharge Date: 08/22/24 Please see the following information for a summary of their discharge status. Subjective Subjective: Last couple days has felt lethargic and slow. No balance problems though. Now and then gets dizzy feeling unsteady for 5 seconds. Doing yard work and down on knees and no problems. Carrying something heavy will make him feel imbalance. Will have CT scan next week maybe for ministrokes. They will also check his carotids. Overall Improvement % Improvement: 80 Objective Objective/Function: Normal balance today MSQ positions no symptoms VOR walking safe and I, quick unsteady when stop movement but short lived. Otherwise appearing mostly nomral today but complaining of lethargy for a week and zinger in R neck that may precede his dizzyness. Appropriate to have scan of arteries and CATscan and those or on the docket. Goals Goal 1:: Pt feel 95% back to normal steadyness and balance Goal Progress: 80% Goal 2:: FGA score 28 Goal Progress: Goal Met Goal 3:: VOR 60 seconds without symptoms Goal Progress: Goal Met Goal 4:: Golf back to normal feeling. Goal Progress: Progressing Goal 5:: <10 on DHI Goal Progress: Progressing Plan Plan: d/c to HEP D/C Information Discharge Comments: To doctor after other diagnostics. d/c sentence: If there are questions or concerns regarding this patient's physical therapy, please feel free to call me at [phone]. Thank you for the referral of this patient. Sincerely, Jorgito Stern, DPT, OCS, CSCS Balance/Gait/Functional tests Balance/Special Test Scores Functional Gait Assessment Score: 30 % Disability: 0 Dizziness Score: 16 Improvement % Improvement: 80
== END 2024-08-22 12:43 | disposition home or self-care (01) ==
LOC: PT 10:30
PROVIDERS: PCP Family Medicine; Referring Provider Family Medicine; Visit Provider Family Medicine
DX: R42 Dizziness and giddiness (principal)
CPT/HCPCS: 97161; 97530

== ENCOUNTER → 2024-08-28 | Outpatient (CLI) | payer MEDICARE, SELFPAY ==
--- NOTE | 2024-08-28 18:19 | CT_ITS ---
PROCEDURE: BRAIN/HEAD WITHOUT CONTRAST 08/28/2024 REASON FOR EXAM: LOSS OF BALANCE TECHNIQUE: Head CT without intravenous contrast. Coronal and Sagittal reconstruction series were provided. One or more dose reduction techniques were used (e.g., Automated exposure control, adjustment of the mA and/or kV according to patient size, use of iterative reconstruction technique. RADIATION DOSE SUMMARY: CTDlvol: 44.99 mGy DLP: 796.11 mGycm COMPARISON: None. FINDINGS: Moderate global parenchymal atrophy. Periventricular white matter hypodensity likely representing mild chronic microvascular ischemia. No evidence of acute hemorrhage or infarction. The paranasal sinuses are clear. The mastoid air cells are well aerated. The calvarial vault and skull base are intact. CT/Brain/Head without Contrast IMPRESSION: No acute intracranial abnormality. Reading Location: [place] [id number]
== END | disposition home or self-care (01) ==
LOC: CT 18:17
PROVIDERS: PCP Family Medicine; Referring Provider Family Medicine; Visit Provider Family Medicine
DX: R26.89 Other abnormalities of gait and mobility (principal)
CPT/HCPCS: 70450

== ENCOUNTER → 2024-09-11 | Outpatient (CLI) | payer MEDICARE, SELFPAY ==
--- NOTE | 2024-09-11 09:54 | CDU_ITS ---
Reason For Study Reason For Study: abnormalities of gait and mobility Rt. Velocities/BP Lt. Velocities/BP Prox CCA 83.1/11.7 cm/sec. Prox CCA 111.3/14.2 cm/sec. Mid CCA 99.6/14.9 cm/sec. Mid CCA 101.4/16.7 cm/sec. Dist CCA 96.3/17.1 cm/sec. Dist CCA 73.2/16.7 cm/sec. Prox ICA 54.7/17.9 cm/sec. Prox ICA 59.6/13.4 cm/sec. Mid ICA 64.1/22.6 cm/sec. Mid ICA 90.7/29.3 cm/sec. Dist ICA 79.0/21.4 cm/sec. Dist ICA 106.0/34.8 cm/sec. Rt. ICA/CCA = 79.0/99.6=0.8. Lt. ICA/CCA = 106.0/101.4=1.0. Prox ECA 77.6/10.6 cm/sec. Prox ECA 99.3/10.9 cm/sec. Rt. Vert. 43.4/15.0 cm/sec. Lt. Vert. 60.0/0.0 cm/sec. Right Extracranial There is homogeneous, smooth atherosclerotic plaque noted in the right common carotid artery. There is intimal thickening but no significant atherosclerotic plaque noted in the right internal carotid artery. There is no significant atherosclerotic plaque noted in the right external carotid artery. Antegrade flow is noted in the right vertebral artery. Left Extracranial There is homogeneous, smooth atherosclerotic plaque noted in the left common carotid artery. There is homogeneous, smooth atherosclerotic plaque noted in the left internal carotid artery. The left internal carotid artery is very tortuous. The left external carotid artery is not well visualized. Antegrade flow is noted in the left vertebral artery. VL/Carotid Duplex Ultrasound Interpretation Summary No significant atherosclerotic plaque or stenosis noted in the right internal c arotid artery. Mild (<50%) stenosis left extracranial internal carotid. Flow within the vertebral arteries is antegrade bilaterally. Ordering Physician: Vicente Alvarado Referring Physician: Vicente Alvarado Performed By: Dinorah Wong RDCS, RVT
== END | disposition home or self-care (01) ==
LOC: CVS 09:52
PROVIDERS: PCP Family Medicine; Referring Provider Family Medicine; Visit Provider Family Medicine
DX: R26.89 Other abnormalities of gait and mobility (principal)
CPT/HCPCS: 93880

== ENCOUNTER → 2024-10-12 | Outpatient (CLI) | payer MEDICARE, SELFPAY ==
--- NOTE | 2024-10-12 11:04 | RAD_ITS ---
PROCEDURE: CERV SPINE 4 OR 5 VIEWS 10/12/2024 REASON FOR EXAM: NECK PAIN TECHNIQUE: CERV SPINE 4 OR 5 VIEWS COMPARISON: None. FINDINGS: No evidence of fracture. Vertebral body heights are relatively preserved. Mild grade 1 anterolisthesis of C4 on C5. Straightening of the normal cervical lordosis. Multilevel spondylotic changes with varying degrees of disc space narrowing, endplate sclerosis and anterior osteophytosis, and hypertrophic facet arthropathy. There appears to be mild-moderate osseous neural foraminal narrowing at C3-4 and C4-5. No prevertebral soft tissue swelling. RAD/Cerv Spine 4 or 5 Views IMPRESSION: Moderate multilevel spondylotic changes as described, with grade 1 anterolisthe sis of C4 on C5, mild-moderate osseous neural foraminal narrowing most pronounced at C3-4 and C4-5. Reading Location: [id number]
== END | disposition home or self-care (01) ==
LOC: MTRAD 11:03
PROVIDERS: PCP Family Medicine; Referring Provider Family Medicine; Visit Provider Family Medicine
DX: M54.12 Radiculopathy, cervical region (principal)
CPT/HCPCS: 72050

== ENCOUNTER → 2024-11-22 | Outpatient (CLI) | payer MEDICARE, SELFPAY | END | disposition home or self-care (01) | LOC: MRI 11:15 | PROVIDERS: PCP Internal Medicine; Referring Provider Student in an Organized Health Care Education/Training Program; Visit Provider Student in an Organized Health Care Education/Training Program | DX: M54.12 Radiculopathy, cervical region (principal); M50.30 Other cervical disc degeneration, unspecified cervical region ==

== ENCOUNTER → 2025-02-26 | Outpatient (CLI) | payer MEDICARE, SELFPAY ==
[2025-02-26 18:17] LABS: PSA,Total - Annual Screen 2.44 ng/mL (0.02-4.00)
== END | disposition home or self-care (01) ==
LOC: MTLAB 14:26
PROVIDERS: PCP Family Medicine; Referring Provider Nurse Practitioner Family; Visit Provider Nurse Practitioner Family
DX: Z13.1 Encounter for screening for diabetes mellitus (principal); Z12.5 Encounter for screening for malignant neoplasm of prostate
CPT/HCPCS: 36415; 83036; 84153; G0103